=== PATIENT | male | born 1940 | race Caucasian/White ===

== ENCOUNTER 2017-07-20 16:43 | Inpatient (IN) | payer OTHER ==
[~2017-07-20] VITALS: Ht 172.7 cm; Wt 79.2 kg
[~2017-07-20 16:43] MED LIST: ALDACTONE25 MG PO; AMLODIPINE BESY10 M1 PO; AMLODIPINE10 MG PO; ANTIVERT 25MG #1 PAC PO; ASPIR 8181 MG PO; ATENOLOL50 MG PO; BENICAR HCT 251 TAB PO; BENICAR40 MG PO; CRESTOR 5MG5 MG PO; CYANOCOBAL1000 MCG/2 IM; DILTIAZEM ER180 M1 PO; DIOVAN320 M1 PO; ELIQUIS5 M1 PO; FUROSEMIDE40 MG PO; HYDREA500 M1 PO; LOVAZA1 G1 PO; METOPROLOL SUC100 M2 PO; METOPROLOL SUCC50 M1 PO; NORMAL SALINE1000 ML IV; PRADAXA150 MG PO; ROBITUSSIN W/CO10 ML PO; SENNA CON/DOCUS1 TAB PO; SYNTHROID175 MCG PO; VITAMIN D31000 IU PO
--- NOTE | 2017-07-20 17:23 | ED GENERAL ADULT ---
History of Present Illness General Chief Complaint: General Adult Stated Complaint: "INSIDE I HAVE ALL THIS PAIN, AND IM WEAK" Source: patient, family, old records Exam Limitations: no limitations Vital Signs & Intake/Output Vital Signs & Intake/Output Vital Signs Date Time Temp Pulse Resp B/P B/P Pulse O2 O2 Flow FiO2 Mean Ox Delivery Rate 07/20 2224 98.4 75 18 124/77 94 Nasal 3.0L Cannula 07/20 1914 152/98 07/20 1910 98.1 67 20 149/106 92 Nasal 3.0L Cannula 07/20 1752 90 Nasal 3.0L Cannula 07/20 1737 94 Nasal 2.0L Cannula 07/20 1647 96.6 96 15 176/116 88 Room Air Room Air ED Intake and Output 07/21 0000 07/20 1200 Intake Total 0 Output Total 635 Balance -635 Intake, Oral 0 Output, Urine 635 Patient 200 lb Weight Weight Reported by Patient Measurement Method Allergies Coded Allergies: No Known Allergies (07/20/17) Reconcile Medications Apixaban (Eliquis) 5 MG TABLET 1 TAB PO BID BLOOD THINNER (Reported) Diltiazem HCl (Diltiazem ER) 180 MG CAPSULE.ER 1 CAP PO DAILY HEART (Reported ) Levothyroxine Sodium (Synthroid) 175 MCG TABLET 1 TAB PO DAILY AC THYROID ( Reported) Metoprolol Succinate 100 MG TAB.ER.24H 1 TAB PO DAILY HEART (Reported) [place]-3 Acid Ethyl Esters (Lovaza) 1 GRAM CAPSULE 2 CAP PO BID CHOLESTEROL ( Reported) Valsartan (Diovan) 320 MG TABLET 1 TAB PO DAILY BP (Reported) Triage Note: PT TO ED FOR C/C OF FULL BODY ACHES AND CHILLS, COUGHING, SNEEZING, -N/V/+DIARRHEA AND ALSO CONSTIPATION. O2 SAT 89% ON RA. PLACED ON 2L NC OXYGEN IN TRIAGE. +SOB, WORSE WHEN LAYING DOWN. Triage Nurses Notes Reviewed? yes Onset: Gradual Duration: week(s):, constant, getting worse Timing: recent history Injury Environment: home Severity: moderate Severity Numbers: 7 No Modifying Factors: none Associated Symptoms: SOB HPI: 76 Year old male with history A. fib on elliquis, hypertension, AICD placed in 2014, thyroid and parathyroid malignancy status post thyroidectomy and parathyroidectomy, polycythemia vera emergency room for evaluation complaining of generalizedbodyaches over his entire body since phil of 2017 a/w generalized malaise and shortenss of breath. he denies chest pain, palpitations, abdominal pain. pt reports he was oonstipated earlier this week for which he used a stool softener and had a normal bm yesterday. no diarrhea contrary to triage note. no leg swelling, rashes to his skin, fever, chills, cough. he has never smoked. he has been compliant with taking his elliquis (Ludin Villasenor) Past History Travel History Traveled to [place] past 21 day No Medical History Any Pertinent Medical History? see below for history Neurological: NONE EENT: thyroid and parathyroid malignancy Cardiovascular: AFIB, hypertension, AICD Respiratory: NONE Gastrointestinal: NONE Hepatic: NONE Renal: NONE Musculoskeletal: NONE Psychiatric: NONE Endocrine: chronic hypercalcemia Blood Disorders: pv Cancer(s): thyroid CANCER SPRAY APPLICATOR/Reproductive: NONE History of MRSA: No History of VRE: No History of CDIFF: No Surgical History Surgical History: thyroidectomy Psychosocial History Who do you live with Patient/Self Services at Home None What is your primary language Irish Tobacco Use: Never used ETOH Use: denies use Illicit Drug Use: denies illicit drug use Family History Family History, If Any: MOTHER FH: HTN (hypertension) SISTER FH: HTN (hypertension) SISTER FH: diabetes mellitus BROTHER FH: diabetes mellitus Relation not specified for: FH: heart disease Hx Contributory? No (Ludin Villasenor) Review of Systems Review of Systems Constitutional: Reports: see HPI. Comments Review of systems: See HPI, All other systems negative. Constitutional, chills no fever, malaise HEENT: no sore throat no congestion, no ear pain Cardiovascular: No chest pain , no palpitation Skin: no rashes, no change in skin Respiratory: dyspnea no cough no sputum no hemoptysis GI: No nausea no vomiting, no diarrhea, no bloating/constipation : No dysuria Muscle skeletal: No joint pain, no back pain, no neck pain, Neurologic: , no headache Psych: No stress Heme/endocrine: No bruising Immunology: No lymphadenopathy (Ludin Villasenor) Physical Exam Physical Exam General Appearance: well developed/nourished, alert, awake Comments: Well-developed well-nourished person in no acute distress HEENT: Normal EENT exam; PERRL, EOMI, HEAD is atraumatic. moist mucous membranes. Neck: Supple, normal range of motion without pain or tenderness Back:Full range of motion Cardiovascular: Irregular rate and rhythm no murmurs, normal JVP Respiratory: Chest nontender.There were no bony deformities, no asymmetry. No respiratory distress. Patient speaking in full complete sentences. Breath sounds clear to auscultation bilaterally: NO W/R/R Abdomen: Soft, nontender nondistended, no appreciable organomegaly. Normal bowel sounds. No rebound/guarding, No appreciable enlargement of the abdominal aorta, No ascites. Extremity: No edema, full range of motion of extremities, normal and equal pulses bilaterally, 5 out of 5 strength noted to bilateral upper and lower extremities Neuro: Alert oriented x3, motor sensory normal. There were no obvious focal neurologic abnormalities. Skin: No appreciable rash on exposed skin, skin is warm and dry. Psych: Mood and affect is normal, memory and judgment is normal. Core Measures ACS in differential dx? Yes CVA/TIA Diagnosis: No Sepsis Present: No Sepsis Focused Exam Completed? No (Estevan SEGOVIA,Ludin) Progress Differential Diagnoses I considered the following diagnoses in my evaluation of the patient: [pe, pna, cleve, anemia, ami, sepsis, pleural effusion, malignancy, influenza Plan of Care: Orders Procedure Date/time Status Heart Healthy Diet 07/21 B Active TROPONIN LEVEL 07/21 0600 Active CBC WITHOUT DIFFERENTIAL 07/21 06 Active BASIC ELECTROLYTES PLUS BUN&CR 07/21 0600 Active EKG 07/21 0600 Active TROPONIN LEVEL 07/21 0005 Complete SODIUM 07/21 0005 Complete EKG 07/21 0005 Active Weight 07/21 UNK Active Intake & Output 07/21 UNK Active ECHOCARDIOGRAM 07/21 UNK Active Teach/Educate 07/20 2351 Active Pain Treatment and Response 07/20 2351 Active Nutritional Intake, Monitor 07/20 2351 Active Isolation 07/20 2351 Active Patient Care Conference 07/20 2351 Active Pathway - chart 07/20 2231 Active House Staff 07/20 2231 Active Patient Data 07/20 223 Active Patient Data 07/20 2206 Active OXYGEN SETUP (GEN) 07/20 2003 Active Saline Lock 07/20 2003 Active Admit to inpatient 07/20 2003 Active Vital Signs 07/20 2003 Active Activity/Ambulation 07/20 2003 Active Code Status 07/20 2003 Active BLOOD CULTURE 07/20 1910 Active Add-on Test (ER Only) 07/20 1844 Active Add-on Test (ER Only) 07/20 1736 Active Add-on Test (ER Only) 07/20 1735 Active Telemetry/Saute Chef 07/20 1735 Active Intake & Output 07/20 1734 Active PARTIAL THROMBOPLASTIN TIME 07/20 173 Complete PROTHROMBIN TIME 07/20 1730 Complete LACTIC ACID 07/20 1730 Complete CREATINE PHOSPHOKINASE 07/20 1730 Complete B-TYPE NATRIURETIC PEP (BNP) 07/20 1730 Complete RAPID VIRAL INFLUENZA A 07/20 1656 Complete TROPONIN LEVEL 07/20 165 Complete COMPREHENSIVE METABOLIC PANEL 07/20 165 Complete CBC WITHOUT DIFFERENTIAL 07/20 165 Complete EKG 07/20 165 Active TRC EVALUATION (GEN) 07/20 UNK Active VTE Mechanical Prophylaxis 07/20 UNK Active Current Medications Sig/Janes Start time Last Medication Dose Stop Time Status Admin Metoprolol Succinate 100 MG DAILY 07/21 1000 AC (Toprol Xl) Furosemide 20 MG 7:30 AM, & 4:30 PM 07/21 0730 AC (Lasix) Levothyroxine Sodium 0.175 MG DAILY AC 07/21 0700 AC (Synthroid) Polyethylene Glycol 17 GM DAILY PRN 07/21 0115 AC (Miralax) Senna 187 MG AT BEDTIME PRN 07/21 0115 AC (Senokot) Apixaban 5 MG BID 07/21 0100 AC 07/21 (Eliquis) 0216 Laboratory Tests 07/21/17 0030: Troponin I 0.02 07/20/17 1730: Anion Gap 18 H, Estimated GFR > 60, BUN/Creatinine Ratio 22.7, Glucose 113 H, Lactic Acid 1.8, Calcium 11.0 H, Total Bilirubin 1.0, AST 19, ALT 25, Alkaline Phosphatase 76, Creatine Kinase 46 L, Troponin I 0.03, Xra-N-Tbwadmyaxzt Pept 45085 H, Total Protein 7.4, Albumin 4.5, Globulin 2.9, Albumin/Globulin Ratio 1.6, PT 29.8 H, INR 2.87 H, APTT 41 H, CBC w Diff NO MAN DIFF REQ, RBC 4.77, MCV 101.7 H, MCH 33.5 H, MCHC 32.9 L, RDW 16.2 H, MPV 8.3, Gran % 78.8 H, Lymphocytes % 13.0 L, Monocytes % 6.8, Eosinophils % 1.1, Basophils % 0.3, Absolute Granulocytes 6.3, Absolute Lymphocytes 1.0 L, Absolute Monocytes 0.5, Absolute Eosinophils 0.1, Absolute Basophils 0 Microbiology 07/20 1909 BLOOD: Blood Culture - RECD 07/20 1657 NASOPHARYN: Influenza Virus A & B Rapid Smear - COMP duoneb, solumedrol 125mg iv ordered. pt resting in nad case d/w dr leal agrees with plan 1844- pt 92% on 3l, reports improvement in sx with duoneb, i d/w the pt and his family all his labs and xray findings. pending ct. pts ca is baseline CASE D/W DR ESTRADA WILL CONSULT, AGREES WITH PLAN Diagnostic Imaging: Viewed by Me: Radiology Read, CT Scan. Discussed w/RAD: Radiology Read, CT Scan. Radiology Impression: PATIENT: MARLYS ROWE PRESENT AGE: 76 PATIENT ACCOUNT NO: [id number] : 39 LOCATION: [facility] ORDERING PHYSICIAN: Ludin SEGOVIA SERVICE DATE: 07/20/17 EXAM TYPE: RAD - XRY- PORTABLE CHEST XRAY EXAMINATION: XR PORTABLE CHEST CLINICAL INFORMATION: Shortness of breath. Hypoxia. COMPARISON: Chest x-ray 01/21/2017 TECHNIQUE: Portable frontal view of the chest was obtained. 5:53 PM FINDINGS: Heart size is enlarged. There is a single lead pacemaker in the right ventricle. No acute change of the vascularity. The central hilar vessels are slightly prominent but this is stable since exam of 01/21/2017. No interstitial edema. No large pleural effusion. No dense consolidation. IMPRESSION: Cardiomegaly. Pacemaker lead in right ventricle. No acute pulmonary vascular congestion. DICTATED BY: Uziel Melvin MD DATE/TIME DICTATED:07/20/171822 BROKE BEATER OPERATOR:RICHARD DATE/TIME TRANSCRIBED:07/20/171822 CONFIDENTIAL, DO NOT COPY WITHOUT APPROPRIATE AUTHORIZATION. <Electronically signed in Other Vendor System> SIGNED BY: Uziel Melvin MD 07/20/171828, PATIENT: MARYLS ROWE PRESENT AGE: 76 PATIENT ACCOUNT NO: [id number] : 39 LOCATION: ER ORDERING PHYSICIAN: Ludin SEGOVIA SERVICE DATE: 07/20/174344 EXAM TYPE: CAT - CTA CHEST-PULMONARY EMBOLISM EXAMINATION: CT ANGIOGRAM OF THE CHEST WITH AND WITHOUT CONTRAST (CT PULMONARY ANGIOGRAM FOR PE) CLINICAL INFORMATION: Hypoxia and shortness of breath. COMPARISON: CTA chest 01/21/2017. Chest x-ray performed the same day. TECHNIQUE: Prior to contrast administration, noncontrast localization images were obtained. Subsequently, multidetector volumetric imaging was performed from the thoracic inlet to below the diaphragms following the administration of 95 mL Optiray 320 intravenous contrast. No contrast reaction reported. Sagittal, coronal, and MIP oblique sagittal reformatted images were obtained on the CT workstation, uploaded to PACS, and reviewed. FINDINGS: No filling defects within the central, lobar, or segmental pulmonary arteries to suggest underlying pulmonary embolism. There is interlobular septal thickening and patchy groundglass opacities suggesting interstitial/alveolar pulmonary edema. There is a small right pleural effusion. There is no pneumothorax. 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 Stable cardiomegaly. Stable appearing nonspecific enlarged mediastinal and bilateral hilar lymph nodes. Duodenal periampullary diverticulum. No acute osseous abnormalities. Thoracic spondylosis. Left pectoral pacemaker in place. IMPRESSION: - No central pulmonary embolism. - Imaging findings suggest mild to moderate interstitial/ alveolar pulmonary edema. There is a small right pleural effusion. - Stable appearing nonspecific enlarged mediastinal and bilateral hilar lymph nodes. 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 - Stable cardiomegaly. DICTATED BY : Franko Medrano MD DATE/TIME DICTATED:07/20/171849 BROKE BEATER OPERATOR: RICHARD DATE/TIME TRANSCRIBED:07/20/171849 CONFIDENTIAL, DO NOT COPY WITHOUT APPROPRIATE AUTHORIZATION. <Electronically signed in Other Vendor System> SIGNED BY: Franko Medrano MD 07/20/171921 Initial ED EKG: AFIB AT 70, PVC, NO ACUTE ST SEG CHANGES, NORMAL AXIS Prior EKG: unchanged Rhythm Strip: atrial fibrillation (Estevan SEGOVIA,Ludin) Departure Departure Time of Disposition: 2010 Disposition: STILL A PATIENT Condition: Stable Clinical Impression Primary Impression: CHF exacerbation Qualifiers: Congestive heart failure type: unspecified congestive heart failure type Qualified Code: I50.9 - Heart failure, unspecified Secondary Impressions: Hilar lymphadenopathy, Hypoxia, Mediastinal lymphadenopathy, Pseudoaneurysm Referrals: Alex Self MD (PCP/Family) Departure Forms: Customer Survey General Discharge Information Admission Note Spoke With: Andie Gibbons MD Documentation of Exam: Documentation of any treatments & extenuating circumstances including Concerns Regarding Discharge (functional status, medication knowledge or non-compliance, living conditions, etc.) that warrant an admission rather than observation: CARDIOLOGY CONSULT, IV DIURESIS, RESP TX PRN, PREMATURE DISCHARGE WOULD BE MEDICALLY HARMFUL PT IS HYPOXIC ON ROOM AIR, NORMALLY NOT O2 DEPENDANT, MAY REQUIRE ECHO, (Ludin Villasenor) PA/PLANT PATHOLOGY TEACHER Co-Sign Statement Statement: ED Attending supervision documentation- x I saw and evaluated the patient. I have also reviewed all the pertinent lab results and diagnostic results. I agree with the findings and the plan of care as documented in the PA's/PLANT PATHOLOGY TEACHER's documentation. Afib on eliquis with sob, keller. Pulmonary edema on CTA with elevated BNP [] I have reviewed the ED Record and agree with the PA's/PLANT PATHOLOGY TEACHER's documentation. [] Additions or exceptions (if any) to the PAs/PLANT PATHOLOGY TEACHER's note and plan are summarized below: [] (Rashida WRIGHT,Darian) Critical Care Note Critical Care Note Critical Care Time: 30-74 min (Ludin Villasenor)
[2017-07-20 17:48] LABS: ABSOLUTE BASOPHIL COUNT 0 /CUMM (0.0-0.2); ABSOLUTE EOSINOPHIL COUNT 0.1 /CUMM (0.0-0.7); ABSOLUTE GRANULOCYTE CT 6.3 /CUMM (1.4-6.5); ABSOLUTE MONOCYTE COUNT 0.5 /CUMM (0.10-0.60); BASOPHIL % 0.3 % (0.0-2.0); EOSINOPHIL % 1.1 % (0-5); GRANULOCYTE % 78.8 % (42.2-75.2); HEMATOCRIT 48.6 % (42-52); MEAN CORPUSCULAR HGB 33.5 PG (27.0-31.0); MEAN CORPUSCULAR HGB CONC 32.9 G/DL (33.0-37.0); MEAN CORPUSCULAR VOLUME 101.7 FL (80.0-94.0); MEAN PLATELET VOLUME 8.3 FL (7.4-10.4); PLATELET COUNT 229 /CUMM (130-400); RBC DISTRIBUTION WIDTH 16.2 % (11.5-14.5); RED BLOOD CELL CT 4.77 /CUMM (4.70-6.10)
[2017-07-20 17:55] LABS: PT 29.8 SEC (9.4-12.5); PTT 41 SEC (25-37)
--- NOTE | 2017-07-20 18:29 | RADIOLOGY REPORT ---
EXAMINATION: XR PORTABLE CHEST CLINICAL INFORMATION: Shortness of breath. Hypoxia. COMPARISON: Chest x-ray 01/21/2017 TECHNIQUE: Portable frontal view of the chest was obtained. 5:53 PM FINDINGS: Heart size is enlarged. There is a single lead pacemaker in the right ventricle. No acute change of the vascularity. The central hilar vessels are slightly prominent but this is stable since exam of 01/21/2017. No interstitial edema. No large pleural effusion. No dense consolidation. IMPRESSION: Cardiomegaly. Pacemaker lead in right ventricle. No acute pulmonary vascular congestion.
--- NOTE | 2017-07-20 19:22 | CT SCAN REPORT ---
EXAMINATION: CT ANGIOGRAM OF THE CHEST WITH AND WITHOUT CONTRAST (CT PULMONARY ANGIOGRAM FOR PE) CLINICAL INFORMATION: Hypoxia and shortness of breath. COMPARISON: CTA chest 01/21/2017. Chest x-ray performed the same day. TECHNIQUE: Prior to contrast administration, noncontrast localization images were obtained. Subsequently, multidetector volumetric imaging was performed from the thoracic inlet to below the diaphragms following the administration of 95 mL Optiray 320 intravenous contrast. No contrast reaction reported. Sagittal, coronal, and MIP oblique sagittal reformatted images were obtained on the CT workstation, uploaded to PACS, and reviewed. FINDINGS: No filling defects within the central, lobar, or segmental pulmonary arteries to suggest underlying pulmonary embolism. There is interlobular septal thickening and patchy groundglass opacities suggesting interstitial/alveolar pulmonary edema. There is a small right pleural effusion. There is no pneumothorax. 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 Stable cardiomegaly. Stable appearing nonspecific enlarged mediastinal and bilateral hilar lymph nodes. Duodenal periampullary diverticulum. No acute osseous abnormalities. Thoracic spondylosis. Left pectoral pacemaker in place. IMPRESSION: - No central pulmonary embolism. - Imaging findings suggest mild to moderate interstitial/alveolar pulmonary edema. There is a small right pleural effusion. - Stable appearing nonspecific enlarged mediastinal and bilateral hilar lymph nodes. 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 - Stable cardiomegaly.
--- NOTE | 2017-07-20 22:08 | History & Physical ---
Adriano Pederson MD 07/20/17 7933: General Information and HPI MD Statement: I have seen and personally examined MARLYS NAZARIO and documented this H&P. The patient is a 76 year old M who presented with a patient stated chief complaint of [worsening dyspnea]. Source of Information: patient, old records Exam Limitations: no limitations History of Present Illness: Patient is a 76-year-old male with a past medical history significant for A. fib on Eliquis, AICD placed in 2015, HTN, pulmonary htn, thyroid and parathyroid cancer status post thyroid and parathyroidectomy, PCV presents complaining of worsening dyspnea on exertion. Patient states that for the past 2 months he has been experiencing progressive dyspnea on exertion, but states he intermittently has "good days" where he does not experience dyspnea. Patient states that recently shortness of breath has gotten worse to the point that he even get short of breath with tasks such as writing. Patient also complains of orthopnea states that he gets very short of breath when lying down flat and must turn on his sides. During this time he also reports a mostly dry cough with occasional greenish sputum production. He reports mild chest pain associated with his cough. He endorses PND and poor PO intake. He also endorses intermittent palpitations during this period of time which he describes as a sensation of his heart racing and lasts for roughly 1 minute, he states that these occur approximately weekly. He denies any leg swelling, general chest discomfort, fever, chills, nausea, vomiting, sick contacts. Allergies/Medications Allergies: Coded Allergies: No Known Allergies (07/20/17) Home Med list Apixaban (Eliquis) 5 MG TABLET 1 TAB PO BID BLOOD THINNER (Reported) Diltiazem HCl (Diltiazem ER) 180 MG CAPSULE.ER 1 CAP PO DAILY HEART (Reported ) Levothyroxine Sodium (Synthroid) 175 MCG TABLET 1 TAB PO DAILY AC THYROID ( Reported) Metoprolol Succinate 100 MG TAB.ER.24H 1 TAB PO DAILY HEART (Reported) [place]-3 Acid Ethyl Esters (Lovaza) 1 GRAM CAPSULE 2 CAP PO BID CHOLESTEROL ( Reported) Valsartan (Diovan) 320 MG TABLET 1 TAB PO DAILY BP (Reported) Past History Travel History Traveled to [place] past 21 day No Medical History Neurological: NONE EENT: thyroid and parathyroid malignancy Cardiovascular: AFIB, hypertension, AICD Respiratory: NONE Gastrointestinal: NONE Hepatic: NONE Renal: NONE Musculoskeletal: NONE Psychiatric: NONE Endocrine: chronic hypercalcemia Blood Disorders: pv Cancer(s): thyroid CANCER KNOT BORER/Reproductive: NONE History of MRSA: No History of VRE: No History of CDIFF: No Surgical History Surgical History: thyroidectomy Past Family/Social History Family History Relations & Conditions if any MOTHER FH: HTN (hypertension) SISTER FH: HTN (hypertension) SISTER FH: diabetes mellitus BROTHER FH: diabetes mellitus Relation not specified for: FH: heart disease Psychosocial History Where do you live? Home Who Do You Live With? self Services at Home: None Primary Language: Romansh Smoking Status: Never Smoked ETOH Use: denies use Illicit Drug Use: denies illicit drug use Living Will? no Review of Systems Review of Systems Constitutional: Denies: chills, fever. EENTM: Reports: blurred vision. Denies: double vision, eye pain. Cardiovascular: Reports: orthopena, palpitations. Denies: chest pain, edema, syncope. Respiratory: Reports: cough, orthopnea, short of breath, sputum production. Denies: hemoptysis, wheezing. GI: Reports: constipation. Denies: abdominal pain, melena, nausea, bloody stool, vomiting. Genitourinary: Reports: frequency. Denies: dysuria, hematuria. Musculoskeletal: Reports: no symptoms. Skin: Reports: no symptoms. Exam & Diagnostic Data Last 24 Hrs of Vital Signs/I&O Vital Signs Date Time Temp Pulse Resp B/P B/P Pulse O2 O2 Flow FiO2 Mean Ox Delivery Rate 07/20 2224 98.4 75 18 124/77 94 Nasal 3.0L Cannula 07/20 191 152/98 07/20 1910 98.1 67 20 149/106 92 Nasal 3.0L Cannula 07/20 1752 90 Nasal 3.0L Cannula 07/20 1737 94 Nasal 2.0L Cannula 07/20 1647 96.6 96 15 176/116 88 Room Air Room Air Intake & Output 07/21 0800 07/21 0000 07/20 1600 Intake Total 0 Output Total 635 Balance -635 Intake, Oral 0 Output, Urine 635 Patient 200 lb Weight Weight Reported by Patient Measurement Method Physical Exam General Appearance Alert, Oriented X3, Cooperative, No Acute Distress Skin Temp/Moisture Exam: Warm/Dry Sepsis Skin Exam (color): Normal for Ethnicity HEENT Atraumatic, PERRLA, EOMI, Mucous Membr. moist/pink Neck Supple, JVD+ Cardiovascular Regular Rate, Normal S1, Normal S2, irregularly irregular rhythm Lungs diminished breath sounds, bibasilar crackles Abdomen Normal Bowel Sounds, Soft, No Tenderness Neurological Normal Speech, Strength at 5/5 X4 Ext, Normal Tone, Sensation Intact, Cranial Nerves 3-12 NL Last 24 Hrs of Labs/Brent: Laboratory Tests 07/21/17 0030: Sodium Pending, Troponin I Pending 07/20/17 1730: Anion Gap 18 H, Estimated GFR > 60, BUN/Creatinine Ratio 22.7, Glucose 113 H, Lactic Acid 1.8, Calcium 11.0 H, Total Bilirubin 1.0, AST 19, ALT 25, Alkaline Phosphatase 76, Creatine Kinase 46 L, Troponin I 0.03, [id number] Pept 42679 H, Total Protein 7.4, Albumin 4.5, Globulin 2.9, Albumin/Globulin Ratio 1.6, PT 29.8 H, INR 2.87 H, APTT 41 H, CBC w Diff NO MAN DIFF REQ, RBC 4.77, MCV 101.7 H, MCH 33.5 H, MCHC 32.9 L, RDW 16.2 H, MPV 8.3, Gran % 78.8 H, Lymphocytes % 13.0 L, Monocytes % 6.8, Eosinophils % 1.1, Basophils % 0.3, Absolute Granulocytes 6.3, Absolute Lymphocytes 1.0 L, Absolute Monocytes 0.5, Absolute Eosinophils 0.1, Absolute Basophils 0 Microbiology 07/20 1910 BLOOD: Blood Culture - RECD 07/20 1658 NASOPHARYN: Influenza Virus A & B Rapid Smear - COMP Diagnostic Data EKG Results A fib with PVCs CXR Results Cardiomegaly. Pacemaker lead in right ventricle. No acute pulmonary vascular congestion. Other Results CTA chest - No central pulmonary embolism. - Imaging findings suggest mild to moderate interstitial/alveolar pulmonary edema. There is a small right pleural effusion. - Stable appearing nonspecific enlarged mediastinal and bilateral hilar lymph nodes. 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 - Stable cardiomegaly. Assessment/Plan Assessment: Patient is a 76-year-old male with a past medical history significant for A. fib on Eliquis, AICD placed in 2014, HTN, thyroid and parathyroid cancer status post thyroid and parathyroidectomy, PCV presents complaining of worsening dyspnea on exertion. VS on admission: T 96.6, P 96, RR 15, BP 176/116, O2 sat 88% on room air increased to 94% on 3 L O2 NC. Pertinent Labs on admission: Sodium 149, BUN 25, Cr 1.1, ProBNP 10,700, On the ED patient received IV Lasix and a breathing treatment which she states his breathing. Patient's O2 saturation dropped to 80% on room air while transitioning from sitting to standing. Problem list #Acute hypoxic respiratory failure likely secondary to CHF #Hypernatremia likely due to dehydration #Chronic medical problems including PCV, HTN, A. fib, pulmonary htn Plan -Admit to telemetry -Continuous telemetry monitoring - Rule out ACS with serial troponin and EKG - echocardiogram -PE ruled out with CTA -IV Lasix 20 mg twice a day -Taper O2 as tolerated -BEP every 6 hours to monitor sodium - Strict Is and Os and daily weights - Continue home medications including Eliquis, diltiazem, metoprolol, valsartan , Synthroid - cardiology consult #Diet heart healthy #DVT prophylaxis: Eliquis #CODE STATUS: Full code As Ranked By This Provider Problem List: 1. CHF exacerbation Qualifiers Congestive heart failure type: unspecified congestive heart failure type Qualified Code: I50.9 - Heart failure, unspecified 2. Acute and chronic respiratory failure with hypoxia Core Measures/Misc (03/05) Acute Coronary Syndrome ACS Diagnosis: No Congestive Heart Failure Congestive Heart Failure Diagnosis Yes Last Known EF % 55 Cerebrovascular Accident CVA/TIA Diagnosis: No VTE (View Protocol) VTE Risk Factors Cancer/chemo/othr therapy No Mechanical VTE Prophylaxis d/t N/A MechProphylax Ordered No VTE Pharm Prophylaxis d/t NA PharmProphylax ordered Sepsis (View protocol) Sepsis Present: No Grady Argueta MD 07/20/172231: Resident Review Statement Resident Statement: examined this patient, discussed with tech intern Other Findings: H: Mr Nazario is a pleasant 76-year-old male with a past medical history significant for A. fib on Eliquis, AICD (placed in 2014), HTN, pulmonary hypertension, thyroid and parathyroid cancer status post thyroid and parathyroidectomy, PCV who was brought into the emergency department complaining of weakness, a productive cough and dyspnea on exertion. Patient states that his symptoms have been occurring for the last few months. He states that this has affected his activities of daily living and is unable to be active in tasks such as writing. He also reports significant orthopnea. Coupled with the above, the patient also endorses a mild cough, productive of green sputum. He states that accociated with this cough is a significant amount of chest pain which radiates acorss the entire chest wall. He also endorses occational heart palpitations. Patient follows up with ragman Dr. Jackson. Patient follows up with specimen transporter Dr. La. R On Review of systems, the patient denies any fever, chills, nausea, vomiting. He does state that he has been constipated and previously attempted relief by using a stool softener. T 96.6. Pulse 96. Respirations 15. Blood pressure 176/116. Percent saturation 88% on room air. General Appearance: well developed/nourished, no apparent distress, alert and oriented. Head: atraumatic, normal appearance Eyes: PERRLA Ears, Nose, Throat: hearing grossly normal Neck:Supple, full range of motion Respiratory: Mild bibassilar Crackles Noted. Diminished Breath Sounds. Cardiovascular:Irregular Rate/Rhythm., No murmurs gallops or rubs. Gastrointestinal: normal bowel sounds, soft, non-tender. Back: normal inspection, normal range of motion Extremities: normal inspection, normal range of motion. No Edema Neurologic/Psych: no motor/sensory deficits, awake, alert, oriented x 3 Skin: warm/dry L: WBC: 8.0. H&H 16.0 48.6. Platelets 229. Sodium 149. Potassium 3.6. BUN 25. Creatinine 1.1.HCO3 24. Cl 107 I: EXAMINATION: CT ANGIOGRAM OF THE CHEST WITH AND WITHOUT CONTRAST (CT PULMONARY ANGIOGRAM FOR PE) IMPRESSION: - No central pulmonary embolism. - Imaging findings suggest mild to moderate interstitial/alveolar pulmonary edema. There is a small right pleural effusion. - Stable appearing nonspecific enlarged mediastinal and bilateral hilar lymph nodes. 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 - Stable cardiomegaly. SERVICE DATE: 07/20/179849 EXAM TYPE: RAD - XRY-PORTABLE CHEST XRAY IMPRESSION: Cardiomegaly. Pacemaker lead in right ventricle. No acute pulmonary vascular congestion. A/P Mr Nazario is a pleasant 76-year-old male with a past medical history significant for A. fib on Eliquis, AICD (placed in 2014), HTN, pulmonary hypertension, thyroid and parathyroid cancer status post thyroid and parathyroidectomy, PCV who was brought into the emergency department complaining of weakness, a productive cough and dyspnea on exertion. Acute hypoxic respiratory failure secondary due to decompensated CHF Hypernatremia Rule out ACS History of atrial fibrillation History of hypertension History of thyroid and parathyroid malignancy status post resection History of polycythemia vera Constipation. Admit Patient to Telemetry Will trend troponins to peak. Monitor Na Q 4-6 hours. Ensure not to correct more than 8 hours in a 24-hour period. His hypernatremia shows that he has a 3.5 L of water deficit. Lasix administration will help and bring down the sodium. Repeat Echocardiogram, assess for worsening pulmonary HTN. Cardiology Consultation in AM Strict I's and O's Continue Lasix 20 mg IV every twice a day, may consider Lasix PO on a daily basis at the time of discharge. Miralax and Senokot PRN PT/ OT Consult in Am Diet: Heart healthy. DVT prophylaxis Eliquis. Patient is a Full Code Andie Gibbons 07/21/17 0545: Attending MD Review Statement Attending Statement Attending MD Statement: examined this patient, discuss w/resident/PA/VISUAL EDUCATOR, agreed w/resident/PA/VISUAL EDUCATOR, reviewed EMR data (avail), reviewed images, amended to note Attending Assessment/Plan: Cc: Shortness of breath PMH: A. fib, bradycardia S/P AICD, thyroid cancer, parathyroid cancer S/P 3 surgeries, no radiation or chemotherapy, polycythemia, HTN , TIA Patient came to ER for progressive worsening of shortness of breath since last 1 month. Patient gets shortness of breath more on exertion, these days even with minimal activity, relieved at rest, worse with lying down position associated with mild productive cough. He has some chest soreness because of cough but denies any pain, he has occasional palpitations. He denies any fever, chills, flulike symptoms, worsening of leg swelling. No change in medication. Patient was refusing pamidronate infusion outpatient which was stopped. His hydroxyurea was stopped as well. There is a concern of recurrence for thyroid cancer, patient has been procrastinating the surgery since last many months. Patient does not carry a diagnosis of congestive heart failure. Vitals: Afebrile, pulse 96, RR 15, blood pressure 176/111 on arrival improved to 149/106, saturating 88% on room air improved to 93% on 2 L. On exam: A O 3, cooperative, no acute distress, neck supple, JVD elevated, no lymphadenopathy, mucosa moist, no focal neurological deficit, no dependent edema , no obvious skin rashes or inflammation CVS: S1-S2, irregular. RS: Dependent crackles. Abdomen: Soft, NT, ND, bowel sounds present. Labs: CBC unremarkable except MCV 101.7, sodium 149, potassium 3.6, chloride 107 , bicarbonate 24, BUN 25, creatinine 1.1, anion gap 18, glucose 113, calcium 11.0, LFT unremarkable, troponin 0.03, proBNP 10,700, INR 2.87 CXR:Cardiomegaly. Pacemaker lead in right ventricle. No acute pulmonary vascular congestion. CTA chest: - No central pulmonary embolism. - Imaging findings suggest mild to moderate interstitial/alveolar pulmonary edema. There is a small right pleural effusion. - Stable appearing nonspecific enlarged mediastinal and bilateral hilar lymph nodes. 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 - Stable cardiomegaly. Assessment and plan 76-year-old male with past medical history significant for A. fib, HTN, S/P AICD , history of thyroid and parathyroid cancer with multiple surgeries but no chemotherapy or radiation, polycythemia vara presented in ER for progressive shortness of breath over one month duration more so with exertion, endorses orthopnea, no leg swelling but on examination he is found to have elevated JVD and dependent crackles, chest x-ray does not show any evidence of pulmonary edema but CTA was obtained which ruled out pulmonary embolism instead shows mild to moderate interstitial/alveolar edema. Patient's blood pressure was significantly elevated at arrival which may have precipitated pulmonary edema with likely diastolic failure. His recent echocardiogram done on January 2017 reviewed which showed normal systolic function. Given his worsening of symptoms he would benefit from repeating 2-D echocardiogram, ruling out ischemia. + Suspected new onset heart failure with preserved ejection fraction + Accelerated blood pressure + Hypercalcemia: Chronic secondary to recurrence of thyroid/parathyroid cancer + Hypernatremia + History of A. fib, bradycardia S/P AICD, thyroid cancer, parathyroid cancer S/ P 3 surgeries, no radiation or chemotherapy, polycythemia, HTN , TIA - Admit to telemetry - Continuous telemetry monitoring - Try to wean off oxygen - IV Lasix 20 mg mg twice a day - Strict I's and O's - Daily weights - Serial troponin and EKGs - 2-D echo in a.m. - Cardiology consult in a.m. - Repeat sodium in 4 hours and then in a.m. - DVT prophylaxis
[2017-07-20 23:55] VITALS: BP 148/101
--- NOTE | 2017-07-21 05:47 | Admission Certification ---
Admission Certification Certification Statement - As attending physician, I certify that at the time of - admission, based on clinical presentation, severity of - symptoms, need for further diagnostic testing and - therapeutic interventions, and risk of adverse outcomes - without in-hospital treatment, in my clinical assessment, - this patient requires an acute hospital stay for a minimum - of two nights or longer. I have also considered psychsocial - factors such as support system, advanced age, financial - issues, cognitive issues, and failed out-patient treatments, - past re-admission history, safety of patient, and lack of - compliance as applicable. Specific rationale supporting this admission is: Suspected new onset heart failure with possible preserved ejection fraction, accelerated blood pressure
[2017-07-21 06:54] VITALS: BP 130/62
[2017-07-21 07:37] LABS: ABSOLUTE BASOPHIL COUNT 0 /CUMM (0.0-0.2); ABSOLUTE EOSINOPHIL COUNT 0 /CUMM (0.0-0.7); ABSOLUTE GRANULOCYTE CT 6.7 /CUMM (1.4-6.5); ABSOLUTE LYMPH COUNT 0.5 /CUMM (1.2-3.4); ABSOLUTE MONOCYTE COUNT 0 /CUMM (0.10-0.60); BASOPHIL % 0 % (0.0-2.0); EOSINOPHIL % 0 % (0-5); GRANULOCYTE % 92.5 % (42.2-75.2); HEMATOCRIT 45.7 % (42-52); MEAN CORPUSCULAR HGB 33.7 PG (27.0-31.0); MEAN CORPUSCULAR HGB CONC 33.4 G/DL (33.0-37.0); MEAN PLATELET VOLUME 8.6 FL (7.4-10.4); PLATELET COUNT 217 /CUMM (130-400); RBC DISTRIBUTION WIDTH 15.8 % (11.5-14.5); RED BLOOD CELL CT 4.53 /CUMM (4.70-6.10); WHITE BLOOD CELL COUNT 7.2 /CUMM (4.8-10.8)
--- NOTE | 2017-07-21 07:52 | PN- Housestaff ---
Fabricio WRIGHT,Kathryn 07/21/17 0752: Subjective Follow-up For: New onset HF HTN Hypercalcemia Hypernatremia Tele-Events Since Last Visit: Andrew.fib 62-75, paced, PVCs Subjective: Patient was seen and examined today. Patient states that his shortness of breath has improved. Patient states that he continues to have trouble breathing when lying flat. Patient denies any chest pain, palpitations, lower extremity edema, fever, chills, nausea/vomiting, dysuria/hematuria constipation/diarrhea. Patient does state that he does not feel as if he is completely emptying his bladder. No acute events overnight. Review of Systems Constitutional: Reports: no symptoms. Cardiovascular: Reports: see HPI, orthopena. Denies: chest pain, peripheral edema, syncope. Respiratory: Reports: see HPI. Gastrointestinal: Reports: no symptoms. Genitourinary: Reports: see HPI. Musculoskeletal: Reports: no symptoms. Objective Last 24 Hrs of Vital Signs/I&O Vital Signs Date Time Temp Pulse Resp B/P B/P Pulse O2 O2 Flow FiO2 Mean Ox Delivery Rate 07/21 0906 80 132/80 07/21 0654 98.1 61 18 130/62 95 Nasal Cannula 07/20 2355 94.3 82 16 148/101 92 Nasal 3.0L Cannula 07/20 2255 92 Nasal 3.0L Cannula 07/20 2225 98.4 75 18 124/77 94 Nasal 3.0L Cannula 07/20 1915 152/98 07/20 1911 98.1 67 20 149/106 92 Nasal 3.0L Cannula 07/20 1752 90 Nasal 3.0L Cannula 07/20 1737 94 Nasal 2.0L Cannula 07/20 1647 96.6 96 15 176/116 88 Room Air Room Air Intake & Output 07/21 1600 07/21 0800 07/21 0000 Intake Total 100 0 Output Total 250 635 Balance -150 -635 Intake, Oral 100 0 Output, Urine 250 635 Patient 200 lb Weight Weight Reported by Patient Measurement Method Physical Exam General Appearance: Alert, Oriented X3, Cooperative, No Acute Distress Skin: No Rashes, No Breakdown, No Significant Lesion Skin Temp/Moisture Exam: Warm/Dry HEENT: Atraumatic, Mucous Membr. moist/pink Neck: Supple, +2 Carotid Pulse wo Bruit, +JVD Lymphatic: Cervical nl Cardiovascular: Normal S1, Normal S2, irregular Lungs: crackles heard at lower lung bases bilaterally, remainder of lung exam clear to auscultation Abdomen: Normal Bowel Sounds, Soft, No Tenderness Extremities: No Clubbing, No Cyanosis, No Edema, Normal Pulses, No Tenderness/ Swelling Vascular: Normal Pulses, Pulses Symmetrical Current Medications: Current Medications Sig/Janes Start time Last Medication Dose Route Stop Time Status Admin Albuterol Sulfate 3 ML ONCE ONE 07/20 174 DC 07/20 INH 07/20 174 1749 Apixaban 5 MG BID 07/21 0100 AC 07/21 PO 0906 Furosemide 20 MG 7:30 AM, & 4:30 PM 07/21 0730 AC 07/21 IV 0906 Furosemide 0 .STK-MED ONE 07/20 193 DC IV Furosemide 20 MG ONCE ONE 07/20 193 DC 07/20 IV 07/20 193 193 Ipratropium [place] 2.5 ML ONCE ONE 07/20 1745 DC 07/20 INH 07/20 174 1749 Levothyroxine Sodium 0.175 MG DAILY AC 07/21 0700 AC 07/21 PO 0611 Methylprednisolone 0 .STK-MED ONE 07/20 175 DC .ROUTE Methylprednisolone 125 MG ONCE ONE 07/20 174 DC 07/20 IV 07/20 174 174 Metoprolol Succinate 100 MG DAILY 07/21 1000 AC 07/21 PO 0906 Polyethylene Glycol 17 GM DAILY PRN 07/21 0115 AC PO Senna 187 MG AT BEDTIME PRN 07/21 0115 AC PO Last 24 Hrs of Lab/Brent Results Last 24 Hrs of Labs/Mics: Laboratory Tests 07/21/17 1000: Sodium Cancelled 07/21/17 0642: Anion Gap 14, Estimated GFR > 60, BUN/Creatinine Ratio 24.0, Troponin I 0.01, CBC w Diff NO MAN DIFF REQ, RBC 4.53 L, MCV 101.0 H, MCH 33.7 H, MCHC 33.4, RDW 15.8 H, MPV 8.6, Gran % 92.5 H, Lymphocytes % 7.0 L, Monocytes % 0.5 L, Eosinophils % 0, Basophils % 0, Absolute Granulocytes 6.7 H, Absolute Lymphocytes 0.5 L, Absolute Monocytes 0 L, Absolute Eosinophils 0, Absolute Basophils 0 07/21/17 0030: Troponin I 0.02 07/20/17 1730: Anion Gap 18 H, Estimated GFR > 60, BUN/Creatinine Ratio 22.7, Glucose 113 H, Lactic Acid 1.8, Calcium 11.0 H, Total Bilirubin 1.0, AST 19, ALT 25, Alkaline Phosphatase 76, Creatine Kinase 46 L, Troponin I 0.03, Ubc-L-Irpvrxbidfs Pept 21443 H, Total Protein 7.4, Albumin 4.5, Globulin 2.9, Albumin/Globulin Ratio 1.6, PT 29.8 H, INR 2.87 H, APTT 41 H, CBC w Diff NO MAN DIFF REQ, RBC 4.77, MCV 101.7 H, MCH 33.5 H, MCHC 32.9 L, RDW 16.2 H, MPV 8.3, Gran % 78.8 H, Lymphocytes % 13.0 L, Monocytes % 6.8, Eosinophils % 1.1, Basophils % 0.3, Absolute Granulocytes 6.3, Absolute Lymphocytes 1.0 L, Absolute Monocytes 0.5, Absolute Eosinophils 0.1, Absolute Basophils 0 Microbiology 07/20 1909 BLOOD: Blood Culture - RECD 07/20 1657 NASOPHARYN: Influenza Virus A & B Rapid Smear - COMP Orders ECHO Findings: Left ventricular cavity size normal. Left ventricular wall thickness at upper limits of normal. Moderately reduced global left ventricular systolic function. Moderately abnormal left ventricular ejection fraction estimated at 30-35%. Normal right ventricular size and function. Catheter/pacemaker wire in the right ventricular cavity. Moderate right atrial dilatation. Moderate left atrial dilatation. Kvje-px-nmcbhecw aortic regurgitation. Lang-me-vgtkobmb tricuspid regurgitation. Right ventricular systolic pressure estimated to be elevated at > 60 mmHg. Assessment/Plan Assessment: Patient is a 76-year-old male with past medical history significant for atrial fibrillation on Eliquis, bradycardia status post AICD, hypertension, polycythemia, thyroid cancer, parathyroid cancer status post multiple surgeries, TIA, with previous echo in January 2017 showing LVEF of 50-55% with mild left ventricular hypertrophy and increased right ventricular systolic pressure of 43 mmHg and a 4.3 cm dilated ascending aorta presenting this admission with progressive dyspnea on exertion and orthopnea. On admission: Afebrile, heart rate: 96, respirations 15, blood pressure initially 176/111 improving to 149/106, initially saturating at 88% on room air improving to 94% on 2 L nasal cannula. Physical examination pertinent for elevated JVD and bibasilar crackles without lower extremity edema. Labs were remarkable for MCV of 101.7, sodium of 149, BUN/creatinine 25 and 1.1, anion gap of 18, calcium of 11, proBNP of 10,700, INR of 2.87. Chest x-ray revealed cardiomegaly with pacemaker lead in right ventricle. 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 Patient in the ED initially received DuoNeb treatment 1, Solu-Medrol 125 mg IV Assessment: Patient is a 76-year-old male with significant cardiac history with findings consistent of new onset heart failure with repeat echo today showing a left ventricular ejection fraction of 30-35% which is significantly reduced from his previous echo in 2017 EF of 50-55%. Echo also shows elevated right ventricular systolic pressure of greater than 60 mmHg and global reduction of LV systolic function. Patient today continues to have dyspnea however this has improved with IV Lasix and supplemental oxygen currently at 3 L saturating at 92-95%. Patient is currently in atrial fibrillation with paced heart rate 60s to 70s. Patient was worked up for possible etiologies of new onset heart failure including ACS, valvular disease, heart disease, thyroid disease. Patient was seen and evaluated by cardiology. Records were requested from patient's outpatient audit clerks supervisor in [place], Dr. Jackson. Etiology of patient's new onset heart failure is still unclear however it may be due to tachycardia-induced cardiomyopathy in the setting of atrial fibrillation. Records also arevealed that patient has obstructive sleep apnea requiring CPAP however patient has been noncompliant with CPAP. 1. New onset heart failure 2. Atrial fibrillation 3. Hypothyroidism, history of thyroid cancer 4. Hypernatremia 5. Hypercalcemia Plan: * Continue to monitor on telemetry * Cardiology on board. Appreciate recommendations * Continue Lasix 20 mg IV twice a day * Continue to monitor ins and outs outs and weights daily * Continue metoprolol and valsartan (not available inpatient, losartan substituted) * Continue Eliquis for anticoagulation * Continue levothyroxine 175 g daily * TR for CPAP evaluation * Continue supplemental oxygen and wean off as tolerated * Continue MiraLAX and senna as needed DVT prophylaxis: On Eliquis Diet: Heart healthy Code: Full code Problem List: 1. CHF exacerbation 2. Atrial fibrillation Pain Ratin Pain Location: n/a Pain Goal: Remain pain free Pain Plan: n/a Tomorrow's Labs & Rationales: bep- on lasix Abran Hagen MD 07/21/17 1712: Attending MD Review Statement Attending Statement Attending MD Statement: examined this patient, discuss w/resident/PA/ANGLE SHEAR SET UP OPERATOR, agreed w/resident/PA/ANGLE SHEAR SET UP OPERATOR, reviewed EMR data (avail), discussed with nursing, discussed with case mgmt, reviewed images, amended to note Attending Assessment/Plan: The patient was seen and discussed with house staff. Appreciate Cardiology consultation. I/O's negative with Lasix. ECHO report suggests significant decrease in LVEF 30-35% (vs prior 02/02 50-55%). No focal WMA to suggest ischemia. Consider possible tachycardia induced cardiomyopathy? Await further Cardiology input. Follow I/O's and daily weights along with BEP with Lasix.
--- NOTE | 2017-07-21 11:51 | Cons- Cardiology ---
General Information and HPI Consulting Request Date of Consult: 07/21/17 Requested By: Abran Hagen MD Reason for Consult: Shortness of breath Source of Information: patient, old records History of Present Illness: This is a pleasant 76-year-old male with a past medical history of atrial fibrillation on Eliquis, permanent pacemaker, aortic aneurysm, hypertension, and thyroid disorder who presents to [facility] with a chief complaint of progressive dyspnea of moderate intensity with no associated chest pain. Also noted some rhinorrhea and cough without subjective fevers. Does note some difficulty laying flat but denies any increasing lower extremity edema. No associated bleeding episodes. Denies any headache, slurring of speech, or syncopal episodes. Sometimes has low-level palpitations which are short in duration. Allergies/Medications Allergies: Coded Allergies: No Known Allergies (07/20/17) Home Med List: Apixaban (Eliquis) 5 MG TABLET 1 TAB PO BID BLOOD THINNER (Reported) Diltiazem HCl (Diltiazem ER) 180 MG CAPSULE.ER 1 CAP PO DAILY HEART (Reported ) Levothyroxine Sodium (Synthroid) 175 MCG TABLET 1 TAB PO DAILY AC THYROID ( Reported) Metoprolol Succinate 100 MG TAB.ER.24H 1 TAB PO DAILY HEART (Reported) [place]-3 Acid Ethyl Esters (Lovaza) 1 GRAM CAPSULE 2 CAP PO BID CHOLESTEROL ( Reported) Valsartan (Diovan) 320 MG TABLET 1 TAB PO DAILY BP (Reported) Current Medications: Current Medications Sig/Janes Start time Last Medication Dose Route Stop Time Status Admin Albuterol Sulfate 3 ML ONCE ONE 07/20 174 DC 07/20 INH 07/20 1746 1749 Apixaban 5 MG BID 07/21 0100 AC 07/21 PO 0906 Furosemide 20 MG 7:30 AM, & 4:30 PM 07/21 0730 AC 07/21 IV 0906 Furosemide 0 .STK-MED ONE 07/20 193 DC IV Furosemide 20 MG ONCE ONE 07/20 1929 DC 07/20 IV 07/20 1930 193 Ipratropium [place] 2.5 ML ONCE ONE 07/20 1745 DC 07/20 INH 07/20 1746 1749 Levothyroxine Sodium 0.175 MG DAILY AC 07/21 0700 AC 07/21 PO 0611 Methylprednisolone 0 .STK-MED ONE 07/20 175 DC .ROUTE Methylprednisolone 125 MG ONCE ONE 07/20 1745 DC 07/20 IV 07/20 1746 1746 Metoprolol Succinate 100 MG DAILY 07/21 1000 AC 07/21 PO 0906 Polyethylene Glycol 17 GM DAILY PRN 07/21 0115 AC PO Senna 187 MG AT BEDTIME PRN 07/21 0115 AC PO Review of Systems Review of Systems: Review of systems as per HPI. The remainder of a 10 point review of systems was reviewed and was otherwise negative. Past History Travel History Traveled to [place] past 21 day No Medical History Blood Transfusion Hx: No Neurological: NONE EENT: thyroid and parathyroid malignancy Cardiovascular: AFIB, hypertension, AICD Respiratory: obstructive sleep apnea Gastrointestinal: NONE Hepatic: NONE Renal: NONE Musculoskeletal: NONE Psychiatric: NONE Endocrine: chronic hypercalcemia Blood Disorders: pv Cancer(s): thyroid [employer] PROGRAM DIRECTOR/Reproductive: NONE Surgical History Surgical History: thyroidectomy Family History Relations & Conditions If Any: MOTHER FH: HTN (hypertension) SISTER FH: HTN (hypertension) SISTER FH: diabetes mellitus BROTHER FH: diabetes mellitus Relation not specified for: FH: heart disease Psychosocial History Where Do You Live? Home Who Do You Live With? self Services at Home: None Primary Language: Khmer Smoking Status: Never Smoked ETOH Use: denies use Illicit Drug Use: denies illicit drug use Living Will? no Exam & Diagnostic Data Vital Signs and I&O Vital Signs Date Time Temp Pulse Resp B/P B/P Pulse O2 O2 Flow FiO2 Mean Ox Delivery Rate 07/21 0906 80 132/80 07/21 0654 98.1 61 18 130/62 95 Nasal Cannula 07/20 2355 94.3 82 16 148/101 92 Nasal 3.0L Cannula 07/20 2254 92 Nasal 3.0L Cannula 07/20 2224 98.4 75 18 124/77 94 Nasal 3.0L Cannula 07/20 1915 152/98 07/20 191 98.1 67 20 149/106 92 Nasal 3.0L Cannula 07/20 1752 90 Nasal 3.0L Cannula 07/20 1737 94 Nasal 2.0L Cannula 07/20 1647 96.6 96 15 176/116 88 Room Air Room Air Intake & Output 07/21 1600 07/21 0800 07/21 0000 07/20 1600 07/20 0800 07/20 0000 Intake Total 100 0 Output Total 250 635 Balance -150 -635 Intake, Oral 100 0 Output, Urine 250 635 Patient 200 lb Weight Weight Reported by Patient Measurement Method Physical Exam: General: no apparent distress. Alert. Eyes: No obvious scleral icterus. HEENT: No jugular venous distention or abnormal jugular venous pulsations. Cardiovascular: Normal intensity S1/S2. Irregular, pacemaker noted Respiratory: Mildly decreased air entry Abdomen: Soft, nontender with no guarding or rebound tenderness. Musculoskeletal: No clubbing or cyanosis noted; trace lower extremity edema Skin: No obvious rashes or ulcerations. Neurologic: No gross focal deficits noted. Lymph: No gross lymphadenopathy. Labs/Brent Results: Laboratory Tests 07/21 07/21 07/21 1000 0642 0030 Chemistry Sodium (137 - 145 mmol/L) Cancelled 145 147 H Potassium (3.5 - 5.1 mmol/L) 3.8 Chloride (98 - 107 mmol/L) 109 H Carbon Dioxide (22 - 30 mmol/L) 23 Anion Gap (5 - 16) 14 BUN (9 - 20 mg/dL) 24 H Creatinine (0.7 - 1.2 mg/dL) 1.0 Estimated GFR (>60 ml/min) > 60 BUN/Creatinine Ratio (7 - 25 %) 24.0 Troponin I (<0.11 ng/ml) 0.01 0.02 Hematology CBC w Diff NO MAN DIFF REQ WBC (4.8 - 10.8 /CUMM) 7.2 RBC (4.70 - 6.10 /CUMM) 4.53 L Hgb (14.0 - 18.0 G/DL) 15.3 Hct (42 - 52 %) 45.7 MCV (80.0 - 94.0 FL) 101.0 H MCH (27.0 - 31.0 PG) 33.7 H MCHC (33.0 - 37.0 G/DL) 33.4 RDW (11.5 - 14.5 %) 15.8 H Plt Count (130 - 400 /CUMM) 217 MPV (7.4 - 10.4 FL) 8.6 Gran % (42.2 - 75.2 %) 92.5 H Lymphocytes % (20.5 - 51.1 %) 7.0 L Monocytes % (1.7 - 9.3 %) 0.5 L Eosinophils % (0 - 5 %) 0 Basophils % (0.0 - 2.0 %) 0 Absolute Granulocytes (1.4 - 6.5 /CUMM) 6.7 H Absolute Lymphocytes (1.2 - 3.4 /CUMM) 0.5 L Absolute Monocytes (0.10 - 0.60 /CUMM) 0 L Absolute Eosinophils (0.0 - 0.7 /CUMM) 0 Absolute Basophils (0.0 - 0.2 /CUMM) 0 / 1730 Chemistry Sodium (137 - 145 mmol/L) 149 H Potassium (3.5 - 5.1 mmol/L) 3.6 Chloride (98 - 107 mmol/L) 107 Carbon Dioxide (22 - 30 mmol/L) 24 Anion Gap (5 - 16) 18 H BUN (9 - 20 mg/dL) 25 H Creatinine (0.7 - 1.2 mg/dL) 1.1 Estimated GFR (>60 ml/min) > 60 BUN/Creatinine Ratio (7 - 25 %) 22.7 Glucose (65 - 99 mg/dL) 113 H Lactic Acid (0.7 - 2.1 mmol/L) 1.8 Calcium (8.4 - 10.2 mg/dL) 11.0 H Total Bilirubin (0.2 - 1.3 mg/dL) 1.0 AST (17 - 59 U/L) 19 ALT (21 - 72 U/L) 25 Alkaline Phosphatase (< 127 U/L) 76 Creatine Kinase (55 - 170 U/L) 46 L Troponin I (<0.11 ng/ml) 0.03 Nct-O-Pkccruljoua Pept (<125 pg/mL) 18396 H Total Protein (6.3 - 8.2 g/dL) 7.4 Albumin (3.5 - 5.0 g/dL) 4.5 Globulin (1.9 - 4.2 gm/dL) 2.9 Albumin/Globulin Ratio (1.1 - 2.2 %) 1.6 Coagulation PT (9.4 - 12.5 SEC) 29.8 H INR (0.90 - 1.17) 2.87 H APTT (25 - 37 SEC) 41 H Hematology CBC w Diff NO MAN DIFF REQ WBC (4.8 - 10.8 /CUMM) 8.0 RBC (4.70 - 6.10 /CUMM) 4.77 Hgb (14.0 - 18.0 G/DL) 16.0 Hct (42 - 52 %) 48.6 MCV (80.0 - 94.0 FL) 101.7 H MCH (27.0 - 31.0 PG) 33.5 H MCHC (33.0 - 37.0 G/DL) 32.9 L RDW (11.5 - 14.5 %) 16.2 H Plt Count (130 - 400 /CUMM) 229 MPV (7.4 - 10.4 FL) 8.3 Gran % (42.2 - 75.2 %) 78.8 H Lymphocytes % (20.5 - 51.1 %) 13.0 L Monocytes % (1.7 - 9.3 %) 6.8 Eosinophils % (0 - 5 %) 1.1 Basophils % (0.0 - 2.0 %) 0.3 Absolute Granulocytes (1.4 - 6.5 /CUMM) 6.3 Absolute Lymphocytes (1.2 - 3.4 /CUMM) 1.0 L Absolute Monocytes (0.10 - 0.60 /CUMM) 0.5 Absolute Eosinophils (0.0 - 0.7 /CUMM) 0.1 Absolute Basophils (0.0 - 0.2 /CUMM) 0 Diagnostic Data EKG Results Tracing was pressing reviewed and shows atrial fibrillation with controlled ventricular response rate CXR Results Cardiomegaly. Pacemaker lead in right ventricle. No acute pulmonary vascular congestion. Other Results Telemetry tracings were personally reviewed and show atrial fibrillation with occasional pacing CT: - No central pulmonary embolism. - Imaging findings suggest mild to moderate interstitial/alveolar pulmonary edema. There is a small right pleural effusion. - Stable appearing nonspecific enlarged mediastinal and bilateral hilar lymph nodes. 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 - Stable cardiomegaly. Assessment/Plan Assessment/Plan 1. Shortness of breath likely due to recent URI along with new onset decompensated congestive heart failure 2. Atrial fibrillation on Eliquis 3. Permanent pacemaker in situ 4. Aortic aneurysm 5. Hypertension 6. Thyroid disorder 7. Hypernatremia The patient's presentation is concerning for new onset congestive heart failure. Echocardiogram is pending. Agree with continuing IV Lasix twice a day. Strict I' s and O's and daily weights should be measured. Recommend resuming his outpatient beta miko and ARB. Recommend obtaining medical records from his outpatient tricot knitter. Continue his Elqiuis. Jonnie Lester MD [facility] Consult Acknowledgment - Thank you for your consult request.
--- NOTE | 2017-07-21 12:15 | ECHOCARDIOGRAM REPORT ---
MARLYS ROWE Age: 76 : 1940 Gender: M Exam Date: 07/21/2017 09:47 Exam Location: 1 [address] Ht (in): 68 Wt (lb): 200 BSA: 2.11 BP: 130 / 62 Ordering Physician: Grady Argueta MD Referring Physician: Grady Argueta MD Technologist: Segundo Terrell [facility] Room Number: 188-1 Indications: HEART FAILURE Rhythm: Technical Quality: FINDINGS Left Ventricle Left ventricular cavity size normal. Left ventricular wall thickness at upper limits of normal. Moderately reduced global left ventricular systolic function. Moderately abnormal left ventricular ejection fraction estimated at 30-35%. Right Ventricle Normal right ventricular size and function. Catheter/pacemaker wire in the right ventricular cavity. Right Atrium Moderate right atrial dilatation. Left Atrium Moderate left atrial dilatation. Mitral Valve Structurally normal mitral valve. Mild mitral regurgitation. Aortic Valve Trileaflet aortic valve. Qpnn-pr-xuiheaqe aortic regurgitation. Tricuspid Valve Structurally normal tricuspid valve. Tejm-ph-qipptkti tricuspid regurgitation. Right ventricular systolic pressure estimated to be elevated at > 60 mmHg. Pulmonic Valve Pulmonic valve not well visualized, grossly normal. Pericardium No pericardial effusion. Great Vessels Mildly dilated proximal ascending aorta (4.2 cm). CONCLUSIONS Left ventricular cavity size normal. Left ventricular wall thickness at upper limits of normal. Moderately reduced global left ventricular systolic function. Moderately abnormal left ventricular ejection fraction estimated at 30-35%. Normal right ventricular size and function. Catheter/pacemaker wire in the right ventricular cavity. Moderate right atrial dilatation. Moderate left atrial dilatation. Dpaz-yg-kkusctye aortic regurgitation. Kmbe-uf-asssvjbs tricuspid regurgitation. Right ventricular systolic pressure estimated to be elevated at > 60 mmHg. Johan Lester M.D. (Electronically Signed) Final Date: 21 July 2017 12:14 MEASUREMENTS (Male / Female) Normal Values 2D ECHO LV Diastolic Diameter PLAX 5.3 cm 4.2 - 5.9 / 3.9 - 5.3 cm LV Systolic Diameter PLAX 4.5 cm 2.1 - 4.0 cm LV Fractional Shortening PLAX 15.1 % 25 - 46 % LV Ejection Fraction 2D Teich 31.7 % IVS Diastolic Thickness 1.2 cm LVPW Diastolic Thickness 1.0 cm LV Relative Wall Thickness 0.4 RV Internal Dim ED PLAX 4.2 cm 1.9 - 3.8 cm LVOT Diameter 2.1 cm Aortic Root Diameter 3.7 cm LA Systolic Diameter LX 4.6 cm 3.0 - 4.0 / 2.7 - 3.8 cm LA Volume 130.0 cm 18 - 58 / 22 - 52 cm Ascending Aorta Diameter 4.2 cm DOPPLER AV Peak Velocity 121.0 cm/s AV Peak Gradient 5.9 mmHg AV Mean Velocity 79.0 cm/s AV Mean Gradient 3.0 mmHg AV Velocity Time Integral 23.5 cm AI Deceleration Tripp 136.0 cm/s AI Peak Velocity 445.0 cm/s AI Pressure Half Time 961.5 ms AI Peak Gradient 79.2 mmHg LVOT Peak Velocity 68.1 cm/s LVOT Peak Gradient 1.9 mmHg LVOT Mean Velocity 46.5 cm/s LVOT Mean Gradient 1.0 mmHg LVOT Velocity Time Integral 14.2 cm LVOT Stroke Volume 49.2 cm AV Area Cont Eq vti 2.1 cm AV Area Cont Eq pk 1.9 cm MV Peak Velocity 94.2 cm/s MV Peak Gradient 3.5 mmHg MV Mean Velocity 53.1 cm/s MV Mean Gradient 1.0 mmHg Mitral E Point Velocity 72.2 cm/s Mitral A Point Velocity 53.5 cm/s Mitral E to A Ratio 1.3 MV PHT Velocity 96.5 cm/s MV Deceleration Tripp 496.0 cm/s MV Pressure Half Time 58.4 ms MV Area PHT 3.8 cm MV Deceleration Time 120.0 ms MR Peak Velocity 529.0 cm/s MR Peak Gradient 111.9 mmHg TR Peak Velocity 376.0 cm/s TR Peak Gradient 56.6 mmHg Right Atrial Pressure 5.0 mmHg Pulmonary Artery Systolic Pressu 61.6 mmHg Right Ventricular Systolic Press 61.6 mmHg PV Peak Velocity 79.3 cm/s PV Peak Gradient 2.5 mmHg PV Mean Velocity 51.8 cm/s PV Mean Gradient 1.0 mmHg PV Velocity Time Integral 13.5 cm
[2017-07-21 15:08] VITALS: BP 132/90
[2017-07-21 22:49] VITALS: BP 120/70
[2017-07-22 07:26] VITALS: BP 122/82
--- NOTE | 2017-07-22 09:30 | PN- Cardiology ---
Subjective Subjective: * Breathing is much improved. Patient can lie flat without shortness of breath. * atrial fibrillation with controlled heart rate * EF is about 35% with moderate bilatrial enlargement and mild to moderate AI and TR * INR is 2.87 Objective Vital Signs and I&Os Vital Signs Date Time Temp Pulse Resp B/P B/P Pulse O2 O2 Flow FiO2 Mean Ox Delivery Rate 07/22 08 Nasal 3.0L Cannula 07/22 0751 78 124/62 07/22 0750 78 124/62 07/22 0726 98.0 81 18 122/82 94 Nasal Cannula 07/22 0000 94 Nasal 3.0L Cannula 07/21 2249 97.7 66 18 120/70 92 07/21 1600 94 Nasal 3.0L Cannula 07/21 1508 98.4 70 20 132/90 94 Nasal 3.0L Cannula 07/21 1438 Nasal 3.0L Cannula Intake & Output 07/22 1600 07/22 0800 07/22 0000 07/21 1600 07/21 0800 07/21 0000 Intake Total 0 520 100 0 Output Total 300 350 550 250 635 Balance -300 170 -550 -150 -635 Intake, IV 0 0 Intake, Oral 0 520 100 0 Number 0 0 Bowel Movements Output, Urine 300 350 550 250 635 Patient 174 lb 200 lb Weight Weight Chair scale Reported by Patient Measurement Method Physical Exam: General: WD/WN male in NAD; alert and oriented x 3 HEENT: NC/AT, PERRL, EOMI Neck: no JVD Heart: irregularly irregular with 2/6 systolic murmur Lungs: clear bilaterally Extremities: 1+ leg edema Assessment/Plan Assessment/Plan * No current decompensated CHF. Change Lasix to 20mg PO daily. If feeling well tomorrow he can be discharged from a cardiac perspective. * Atrial fibrillation with good rate control on Metoprolol. He does not appear to need Cardizem. INR is in the therapeutic range. Continue telemetry? Yes
--- NOTE | 2017-07-22 11:14 | PN- Att Addend ---
Attending Addendum Attending Brief Note Patient seen and examined. Resting comfortably and not in any acute distress. Reports feeling better compared to presentation. Denies shortness of breath at rest. Denies cough chest pain or palpitations. He complains of constipation. On telemetry monitoring he remains in atrial flutter with a 3 beat run of ventricular ectopy overnight. Vital Signs Date Time Temp Pulse Resp B/P B/P Pulse O2 O2 Flow FiO2 Mean Ox Delivery Rate 07/22 0800 Nasal 3.0L Cannula 07/22 0751 78 124/62 07/22 0750 78 124/62 07/22 0726 98.0 81 18 122/82 94 Nasal Cannula 07/22 0000 94 Nasal 3.0L Cannula 07/21 2249 97.7 66 18 120/70 92 07/21 1600 94 Nasal 3.0L Cannula 07/21 1508 98.4 70 20 132/90 94 Nasal 3.0L Cannula 07/21 1438 Nasal 3.0L Cannula General appearance: Not in any acute distress. Heart: S1-S2 irregular Lungs: Good entry bilaterally, clear to auscultation Abdomen: Soft, nontender with normal bowel sounds Extremities: No pedal edema Skin: Intact with no rashes Neurologic: No gross focal deficit. Laboratory Tests 07/22/17 1012: Anion Gap 15, Estimated GFR 59 L, BUN/Creatinine Ratio 28.3 H Problems: 1. Acute systolic heart failure. EF was normal back in January now reduced. 2. Atrial flutter 3. Hypertension; better controlled. 4. Hypokalemia 5. Constipation. Recommendations: -Cardiology follow-up appreciated. Transition patient to Lasix 20 mg orally daily. -Unclear etiology of his reduced EF. Follow-up with the cardiology service regarding need for ischemic workup. other etiology may be tachycardia related cardiomyopathy however has been rate controlled here. -Patient is on metoprolol XL. Please confirm if he is also on Cardizem as this shows up on his medication list but appears he has not used it since January. -Monitor input output and daily weight. Refer patient to the CHF clinic upon discharge. -Supplement potassium orally. -Mobilize patient and wean off oxygen supplementation as tolerated. Anticipate discharge in the next 24-48 hours if he is weaned off oxygen supplementation. -Begin on a bowel regimen for his constipation
[2017-07-22 14:15] VITALS: BP 102/68
[2017-07-22 23:13] VITALS: BP 124/80
[2017-07-23 06:34] VITALS: BP 138/88
--- NOTE | 2017-07-23 08:48 | PN- Housestaff ---
Fabricio WRIGHT,Kathryn 07/23/17 0847: Subjective Follow-up For: New onset HF HTN Hypercalcemia Hypernatremia Subjective: Patient was seen and examined today. Denies any complaints. States his breathing has improved. Denies chest pain, palpitations, fever, chills, abdominal pain, n/ v/c/d. Pt had a run of 4 beats vtach, asymptomatic. Review of Systems Constitutional: Reports: no symptoms. Cardiovascular: Reports: no symptoms. Respiratory: Reports: short of breath. Gastrointestinal: Reports: no symptoms. Musculoskeletal: Reports: no symptoms. Objective Last 24 Hrs of Vital Signs/I&O Vital Signs Date Time Temp Pulse Resp B/P B/P Pulse O2 O2 Flow FiO2 Mean Ox Delivery Rate 07/23 0810 76 138/88 07/23 0809 76 138/88 07/23 0800 Nasal 1.5L Cannula 07/23 0634 97.4 76 18 138/88 93 Nasal 1.5L Cannula 07/23 0000 Nasal 1.5L Cannula 07/22 2313 97.2 78 20 124/80 93 Nasal 1.5L Cannula 07/22 1415 98.2 84 22 102/68 93 Nasal 3.0L Cannula Intake & Output 07/23 1600 07/23 0800 07/23 0000 Intake Total 120 120 Output Total Balance 120 120 Intake, Oral 120 120 Patient 175 lb Weight Weight Chair scale Measurement Method Physical Exam General Appearance: Alert, Oriented X3, Cooperative, No Acute Distress Cardiovascular: Normal S1, Normal S2 Lungs: Clear to Auscultation, Normal Air Movement Extremities: No Clubbing, No Cyanosis, No Edema, Normal Pulses, No Tenderness/ Swelling Vascular: Normal Pulses, Pulses Symmetrical Current Medications: Current Medications Sig/Janes Start time Last Medication Dose Route Stop Time Status Admin Apixaban 5 MG BID 07/21 0100 AC 07/23 PO 0809 Furosemide 20 MG DAILY 07/22 1426 AC 07/23 PO 0809 Furosemide 20 MG 7:30 AM, & 4:30 PM 07/21 0730 DC 07/22 IV 0750 Levothyroxine Sodium 0.175 MG DAILY AC 07/21 0700 AC 07/23 PO 0545 Losartan Potassium 50 MG DAILY 07/22 1000 AC 07/23 PO 0809 Metoprolol Succinate 100 MG DAILY 07/21 1000 AC 07/23 PO 0810 Polyethylene Glycol 17 GM DAILY PRN 07/21 0115 AC 07/22 PO 1239 Potassium Chloride 40 MEQ ONCE ONE 07/22 1445 DC 07/22 PO 07/22 1446 1438 Senna 187 MG AT BEDTIME PRN 07/21 0115 AC 07/22 PO 1239 Senna/Docusate Sodium 1 TAB .STK-MED ONE 07/22 1110 DC PO 07/22 1111 Last 24 Hrs of Lab/Brent Results Last 24 Hrs of Labs/Mics: Laboratory Tests 07/23/17 0635: Anion Gap 11, Estimated GFR > 60, BUN/Creatinine Ratio 30.0 H 07/22/17 1012: Anion Gap 15, Estimated GFR 59 L, BUN/Creatinine Ratio 28.3 H Assessment/Plan Assessment: Patient is a 76-year-old male with past medical history significant for atrial fibrillation on Eliquis, bradycardia status post AICD, hypertension, polycythemia, thyroid cancer, parathyroid cancer status post multiple surgeries, TIA, with previous echo in January 2017 showing LVEF of 50-55% with mild left ventricular hypertrophy and increased right ventricular systolic pressure of 43 mmHg and a 4.3 cm dilated ascending aorta presenting this admission with progressive dyspnea on exertion and orthopnea. On admission: Afebrile, heart rate: 96, respirations 15, blood pressure initially 176/111 improving to 149/106, initially saturating at 88% on room air improving to 94% on 2 L nasal cannula. Physical examination pertinent for elevated JVD and bibasilar crackles without lower extremity edema. Labs were remarkable for MCV of 101.7, sodium of 149, BUN/creatinine 25 and 1.1, anion gap of 18, calcium of 11, proBNP of 10,700, INR of 2.87. Chest x-ray revealed cardiomegaly with pacemaker lead in right ventricle. 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 Patient in the ED initially received DuoNeb treatment 1, Solu-Medrol 125 mg IV Assessment: Patient is a 76-year-old male with significant cardiac history with findings consistent of new onset heart failure with repeat echo today showing a left ventricular ejection fraction of 30-35% which is significantly reduced from his previous echo in 2017 EF of 50-55%. Echo also shows elevated right ventricular systolic pressure of greater than 60 mmHg and global reduction of LV systolic function. Patient today has markedly improved with no dyspnea on lasix and oxygen 1.5L down from 3L, saturating in the mid 90s. Patient is currently in atrial fibrillation with paced heart rate 60s to 70s. Patient was worked up for possible etiologies of new onset heart failure including ACS, valvular disease, heart disease, thyroid disease. Patient was seen and evaluated by cardiology. Records were requested from patient's outpatient certified technician specialist in [place], Dr. Jackson. Etiology of patient's new onset heart failure is still unclear however it may be due to tachycardia-induced cardiomyopathy in the setting of atrial fibrillation. Records also arevealed that patient has obstructive sleep apnea requiring CPAP however patient has been noncompliant with CPAP. Patient continues to refuse CPAP evaluation here. 1. New onset heart failure 2. Atrial fibrillation 3. Hypothyroidism, history of thyroid cancer 4. Hypernatremia - resolved 5. Hypercalcemia Plan: * Continue to monitor on telemetry * Cardiology on board. Appreciate recommendations * Continue Lasix 20 mg PO daily * Continue to monitor ins and outs outs and weights daily * Continue metoprolol and valsartan (not available inpatient, losartan substituted) * Continue Eliquis for anticoagulation * Continue levothyroxine 175 g daily * Continue supplemental oxygen and wean off as tolerated * Continue MiraLAX and senna as needed DVT prophylaxis: On Eliquis Diet: Heart healthy Code: Full code Dispo: possible discharge tomorrow, further workup outpatient with cardiology, referal for pulmonology for MODESTA and sleep study for CPAP re-evaluation Problem List: 1. CHF exacerbation Pain Ratin Pain Location: n/a Pain Goal: Remain pain free Pain Plan: tylenol PRN Tomorrow's Labs & Rationales: bep - salas Liu MD,Lowugbengvan 07/23/17 1520: Attending MD Review Statement Attending Statement Attending MD Statement: examined this patient, discuss w/resident/PA/FELTING MACHINE OPERATOR HELPER, agreed w/resident/PA/FELTING MACHINE OPERATOR HELPER, reviewed EMR data (avail), discussed with nursing, discussed with case mgmt, amended to note Attending Assessment/Plan: Patient seen and examined. No issues overnight. No events on patient monitor. No new complaints this morning. He reports any better. On auscultation he has good entry bilaterally with no added sounds. He has no peripheral edema. Recommendations: -Continue oral Lasix. -Continue rate control with metoprolol only. No need for Cardizem per the cardiology service. -Keep off oxygen supplementation as tolerated. -Anticipate discharge tomorrow if he is able to be weaned off oxygen. Patient to be followed by the cardiology service to determine need for further ischemic workup.
--- NOTE | 2017-07-23 10:17 | PN- Cardiology ---
Subjective Subjective: * Breathing is much improved and he can lie flat without shortness of breath. He does not feel that he is completely back to baseline yet. * atrial fibrillation with controlled heart rate * EF is about 35% with moderate bilatrial enlargement and mild to moderate AI and TR * INR is 2.87 Objective Vital Signs and I&Os Vital Signs Date Time Temp Pulse Resp B/P B/P Pulse O2 O2 Flow FiO2 Mean Ox Delivery Rate 07/23 0810 76 138/88 07/23 0809 76 138/88 07/23 0800 Nasal 1.5L Cannula 07/23 0634 97.4 76 18 138/88 93 Nasal 1.5L Cannula 07/23 0000 Nasal 1.5L Cannula 07/22 2313 97.2 78 20 124/80 93 Nasal 1.5L Cannula 07/22 1415 98.2 84 22 102/68 93 Nasal 3.0L Cannula Intake & Output 07/23 1600 07/23 0800 07/23 0000 07/22 1600 07/22 0800 07/22 0000 Intake Total 120 120 360 0 520 Output Total 400 300 350 Balance 120 120 -40 -300 170 Intake, IV 0 0 Intake, Oral 120 120 360 0 520 Number 1 0 0 Bowel Movements Output, Urine 400 300 350 Patient 175 lb 174 lb Weight Weight Chair scale Chair scale Measurement Method Physical Exam: General: WD/WN male in NAD; alert and oriented x 3 HEENT: NC/AT, PERRL, EOMI Neck: no JVD Heart: irregularly irregular with 2/6 systolic murmur Lungs: clear bilaterally Extremities: 1+ leg edema Assessment/Plan Assessment/Plan * No current decompensated CHF. Continue Lasix at 20mg PO daily. If feeling well tomorrow he can be discharged from a cardiac perspective. * Atrial fibrillation with good rate control on Metoprolol. He does not appear to need Cardizem. INR is in the therapeutic range. Continue telemetry? Yes
[2017-07-23 14:50] VITALS: BP 122/78
[2017-07-23 22:06] VITALS: BP 112/76
[2017-07-24 06:29] VITALS: BP 112/78
--- NOTE | 2017-07-24 07:36 | PN- Housestaff ---
Fabricio WRIGHT,Kathryn 07/24/17 0736: Subjective Follow-up For: New onset HF HTN Hypercalcemia Hypernatremia Tele-Events Since Last Visit: Dario/Marcelloflutter pacin-95 Subjective: Patient was seen and examined today. Denies any complaints. States his breathing has improved. Patient removed his nasal cannula today. Patient states he felt well walking to and from the bathroom. Denies chest pain, palpitations, fever, chills, abdominal pain, n/v/c/d. Review of Systems Constitutional: Reports: no symptoms. Cardiovascular: Reports: no symptoms. Respiratory: Reports: no symptoms. Gastrointestinal: Reports: no symptoms. Genitourinary: Reports: no symptoms. Musculoskeletal: Reports: no symptoms. Neurological/Psychological: Reports: no symptoms. Objective Last 24 Hrs of Vital Signs/I&O Vital Signs Date Time Temp Pulse Resp B/P B/P Pulse O2 O2 Flow FiO2 Mean Ox Delivery Rate 07/24 1359 97.7 58 18 150/90 91 Nasal 1.5L Cannula 07/24 1100 22 85 Room Air 07/24 1030 18 93 Room Air 07/24 0801 82 112/78 07/24 0801 82 112/78 07/24 0629 97.3 82 16 112/78 94 Nasal 2.0L Cannula 07/24 0000 Nasal 1.5L Cannula 07/23 2206 97.7 80 20 112/76 94 Intake & Output 07/24 1600 07/24 0800 07/24 0000 Intake Total 500 200 720 Output Total 650 350 Balance -150 200 370 Intake, IV 0 Intake, Oral 500 200 720 Number 0 Bowel Movements Output, Urine 650 350 Patient 175 lb Weight Weight Chair scale Measurement Method Physical Exam General Appearance: Alert, Oriented X3, Cooperative, No Acute Distress HEENT: Atraumatic, PERRLA, EOMI, Mucous Membr. moist/pink Cardiovascular: Normal S1, Normal S2, No Murmurs, irregular rate Lungs: Clear to Auscultation, Normal Air Movement Abdomen: Normal Bowel Sounds, Soft, No Tenderness Extremities: No Clubbing, No Cyanosis, No Edema, Normal Pulses, No Tenderness/ Swelling Current Medications: Current Medications Sig/Janes Start time Last Medication Dose Route Stop Time Status Admin Apixaban 5 MG BID 07/21 0100 DCD 07/24 PO 0800 Furosemide 20 MG DAILY 07/22 1426 DCD 07/24 PO 0801 Levothyroxine Sodium 0.175 MG DAILY AC 07/21 0700 DCD 07/24 PO 0601 Losartan Potassium 50 MG DAILY 07/22 1000 DCD 07/24 PO 0801 Metoprolol Succinate 100 MG DAILY 07/21 1000 DCD 07/24 PO 0801 Polyethylene Glycol 17 GM DAILY PRN 07/21 0115 DCD 07/22 PO 1239 Senna 187 MG AT BEDTIME PRN 07/21 0115 DCD 07/22 PO 1239 Last 24 Hrs of Lab/Brent Results Last 24 Hrs of Labs/Mics: Laboratory Tests 07/24/17 0708: Anion Gap 11, Estimated GFR > 60, BUN/Creatinine Ratio 25.5 H Assessment/Plan Assessment: Patient is a 76-year-old male with past medical history significant for atrial fibrillation on Eliquis, bradycardia status post AICD, hypertension, polycythemia, thyroid cancer, parathyroid cancer status post multiple surgeries, TIA, with previous echo in January 2017 showing LVEF of 50-55% with mild left ventricular hypertrophy and increased right ventricular systolic pressure of 43 mmHg and a 4.3 cm dilated ascending aorta presenting this admission with progressive dyspnea on exertion and orthopnea. On admission: Afebrile, heart rate: 96, respirations 15, blood pressure initially 176/111 improving to 149/106, initially saturating at 88% on room air improving to 94% on 2 L nasal cannula. Physical examination pertinent for elevated JVD and bibasilar crackles without lower extremity edema. Labs were remarkable for MCV of 101.7, sodium of 149, BUN/creatinine 25 and 1.1, anion gap of 18, calcium of 11, proBNP of 10,700, INR of 2.87. Chest x-ray revealed cardiomegaly with pacemaker lead in right ventricle. 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 Patient in the ED initially received DuoNeb treatment 1, Solu-Medrol 125 mg IV Assessment: Patient is a 76-year-old male with significant cardiac history with findings consistent of new onset heart failure with repeat echo today showing a left ventricular ejection fraction of 30-35% which is significantly reduced from his previous echo in 2017 EF of 50-55%. Echo also shows elevated right ventricular systolic pressure of greater than 60 mmHg and global reduction of LV systolic function. Patient today was trialed off oxygen however desatted into the mid80s upon walking around the telemetry unit. Patient otherwise has no complaints. He has been evaluated by cardiology. Will send home with oxygen and lasix with 20mg every other day alternating with 40mg every other day. Patient should follow up with cardiology and pcp and have repeat BEP on 07/28. Patient is currently in atrial fibrillation with paced heart rate 60s to 90s. Patient was worked up for possible etiologies of new onset heart failure including ACS, valvular disease, heart disease, thyroid disease. Patient was seen and evaluated by cardiology. Records were requested from patient's outpatient information security risk analyst in [place], Dr. Jackson. Etiology of patient's new onset heart failure is still unclear however it may be due to tachycardia-induced cardiomyopathy in the setting of atrial fibrillation. Records also arevealed that patient has obstructive sleep apnea requiring CPAP however patient has been noncompliant with CPAP. Patient continues to refuse CPAP evaluation here. 1. New onset heart failure 2. Atrial fibrillation 3. Hypothyroidism, history of thyroid cancer 4. Hypernatremia - resolved 5. Hypercalcemia Plan: * Continue to monitor on telemetry * Cardiology on board. Appreciate recommendations * Continue Lasix 20 mg PO daily alternating with 40mg daily * Continue to monitor ins and outs outs and weights daily * Continue metoprolol and valsartan (not available inpatient, losartan substituted) * Continue Eliquis for anticoagulation * Continue levothyroxine 175 g daily * Continue supplemental oxygen and wean off as tolerated * Continue MiraLAX and senna as needed DVT prophylaxis: On Eliquis Diet: Heart healthy Code: Full code Dispo: Further workup outpatient with cardiology, referal for pulmonology for MODESTA and sleep study for CPAP re-evaluation Discharge home today with close follow up with pcp and cardiology. Problem List: 1. CHF exacerbation Pain Ratin Pain Location: n/a Pain Goal: Remain pain free Pain Plan: tylenol PRN Tomorrow's Labs & Rationales: none- discharge today Abran Hagen MD 07/24/17 0615: Attending Review Statement Attending Statement Attending Statement: examined this patient, discuss w/resident/PA/GAS MAIN AND LINE FITTER, agreed w/resident/PA/GAS MAIN AND LINE FITTER, discussed with family, reviewed EMR data (avail), discussed with nursing, discussed with case mgmt, amended to note Attending Assessment/Plan: The patient was seen and discussed with house staff. Still requiring oxygen ( patient has had home oxygen previously) as desaturates to 80% with ambulation. OK to discharge to home today per Cardiology and will have OP cardiology and pulmonary follow-up (was on CPAP in past). Home oxygen ordered.
--- NOTE | 2017-07-24 12:47 | PN- Cardiology ---
Subjective Subjective: Patient remains on nasal cannula oxygen with no residual edema. He feels his breathing is close to baseline (which he admits is not actually normal). Objective Vital Signs and I&Os Vital Signs Date Time Temp Pulse Resp B/P B/P Pulse O2 O2 Flow FiO2 Mean Ox Delivery Rate 07/24 1100 22 85 Room Air 07/24 1030 18 93 Room Air 07/24 0801 82 112/78 07/24 0801 82 112/78 07/24 0629 97.3 82 16 112/78 94 Nasal 2.0L Cannula 07/24 0000 Nasal 1.5L Cannula 07/23 2206 97.7 80 20 112/76 94 07/23 1600 Nasal 1.5L Cannula 07/23 1450 97.8 82 28 122/78 94 Nasal 1.5L Cannula Intake & Output 07/24 1600 07/24 0800 07/24 0000 07/23 1600 07/23 0800 07/23 0000 Intake Total 200 720 450 120 120 Output Total 350 500 Balance 200 370 -50 120 120 Intake, IV 0 Intake, Oral 200 720 450 120 120 Number 0 Bowel Movements Output, Urine 350 500 Patient 175 lb 175 lb Weight Weight Chair scale Chair scale Measurement Method Physical Exam: General: no apparent distress. Alert. Eyes: No obvious scleral icterus. HEENT: No jugular venous distention or abnormal jugular venous pulsations. Cardiovascular: Normal intensity S1/S2. Irregular, pacemaker noted Respiratory: no rales or ronchi Abdomen: Soft, nontender with no guarding or rebound tenderness. Musculoskeletal: No clubbing or cyanosis noted; No lower extremity edema Skin: No obvious rashes or ulcerations. Neurologic: No gross focal deficits noted. Lymph: No gross lymphadenopathy. Current Medications: Current Medications Sig/Janes Start time Last Medication Dose Route Stop Time Status Admin Apixaban 5 MG BID 07/21 0100 AC 07/24 PO 0800 Furosemide 20 MG DAILY 07/22 1426 AC 07/24 PO 0801 Levothyroxine Sodium 0.175 MG DAILY AC 07/21 0700 AC 07/24 PO 0601 Losartan Potassium 50 MG DAILY 07/22 1000 AC 07/24 PO 0801 Metoprolol Succinate 100 MG DAILY 07/21 1000 AC 07/24 PO 0801 Polyethylene Glycol 17 GM DAILY PRN 07/21 0115 AC 07/22 PO 1239 Senna 187 MG AT BEDTIME PRN 07/21 011 AC 07/22 PO 1239 Results Last 48 Hrs of Labs/Mics: Laboratory Tests 07/24/17 0708: Anion Gap 11, Estimated GFR > 60, BUN/Creatinine Ratio 25.5 H 07/23/17 0635: Anion Gap 11, Estimated GFR > 60, BUN/Creatinine Ratio 30.0 H Recent Imaging Studies: Telemetry tracings were personally reviewed and show atrial fibrillation with controlled ventricular response rate Echo: Left ventricular cavity size normal. Left ventricular wall thickness at upper limits of normal. Moderately reduced global left ventricular systolic function. Moderately abnormal left ventricular ejection fraction estimated at 30-35%. Normal right ventricular size and function. Catheter/pacemaker wire in the right ventricular cavity. Moderate right atrial dilatation. Moderate left atrial dilatation. [id number] aortic regurgitation. [id number] tricuspid regurgitation. Right ventricular systolic pressure estimated to be elevated at > 60 mmHg. Johan Lester M.D. (Electronically Signed) Final Date: 21 July 2017 12:14 Assessment/Plan Assessment/Plan 1. Shortness of breath likely due to recent URI along with new onset decompensated congestive heart failure; now with new moderate LV dysfunction by Echo 2. Atrial fibrillation on Eliquis 3. Permanent pacemaker in situ 4. Aortic aneurysm 5. Hypertension 6. Thyroid disorder 7. Pulmonary Hypertension by echo with no evidence of pulmonary embolism The patient remains on nasal cannula oxygen but reports his breathing is at baseline. If unable to wean off the nasal cannula oxygen can consider increasing the Lasix to 20 mg daily alternating with 40 mg daily. I did have an extensive discussion with him about the potential need for additional ischemic workup given the decrease in ejection fraction; he is willing to consider this but prefers medical therapy for now and he will discuss the possibility of elective right and left heart cath with his outpatient freight engineer. Continue his current anti-myopathic regimen along with his oral anticoagulation; his heart rate remains well-controlled. Jonnie Lester MD [facility] Continue telemetry? No
[2017-07-24 13:59] VITALS: BP 150/90
[2017-07-24] MEDS ORDERED: FUROSEMIDE20 M1 PO ×2 (15:00→16:42)
--- NOTE | 2017-07-24 15:03 | Patient Discharge Instructions ---
Discharge Instructions General Discharge Information You were seen/treated for: Congestive heart failure Special Instructions: 1. Please follow up with your physiotherapy practice manager within 1 week of discharge. Your diltiazem has been stopped due to low blood pressure. Please address restarting your diltiazem with your physiotherapy practice manager. 2. Please follow up with your pcp within 1 week of discharge. 3. Please take the medications as prescribed. 4. Please see your pcp for sleep study referal and CPAP evaluation 5. Please see your pcp and have bloodwork (CMP) done on Monday07/27/16. Activity Full Activity/No Limits: No Activity Self Limited: Yes Acute Coronary Syndrome Inclusion Criteria At DC or during hospital stay patient has or had the following: ACS DIAGNOSIS No Discharge Core Measures Meds if any: Prescribed or Continued at Discharge Meds if any: NOT Prescribed or Continued at Discharge Congestive Heart Failure Inclusion Criteria At DC or during hospital stay patient has or had the following: CHF DIAGNOSIS No Discharge Core Measures Meds if any: Prescribed or Continued at Discharge Meds if any: NOT Prescribed or Continued at Discharge Cerebrovascular accident Inclusion Criteria At DC or during hospital stay patient has or had the following: CVA/TIA Diagnosis No Discharge Core Measures Meds if any: Prescribed or Continued at Discharge Meds if any: NOT Prescribed or Continued at Discharge Venous thromboembolism Inclusion Criteria VTE Diagnosis No VTE Type NONE VTE Confirmed by (Test) NONE Discharge Core Measures - Per Current guidelines, there needs to be overlap - treatment for the first 5 days of Warfarin therapy. - If discharged on Warfarin prior to 5 days of - overlap therapy, the patient will need to be - assessed for post discharge needs including - *Post discharge parental anticoagulation - *Warfarin and/or parental anticoagulation education - *Follow up date to check INR post discharge At least 5 days overlap therapy as Inpatient No Meds if any: Prescribed or Continued at Discharge Note: Overlap Therapy is Warfarin and Anticoagulant Meds if any: NOT Prescribed or Continued at Discharge
--- NOTE | 2017-07-24 16:23 | Discharge Summary ---
Visit Information Visit Dates Admission Date: 07/20/17 Discharge Date: 07/24/17 Hospital Course Course Attending Physician: Abran Hagen MD Primary Care Physician: Alex Self MD Hospital Course: Patient is a 76-year-old male with past medical history significant for atrial fibrillation on Eliquis, bradycardia status post AICD, hypertension, polycythemia, thyroid cancer, parathyroid cancer status post multiple surgeries, TIA, with previous echo in January 2017 showing LVEF of 50-55% with mild left ventricular hypertrophy and increased right ventricular systolic pressure of 43 mmHg and a 4.3 cm dilated ascending aorta presenting this admission with progressive dyspnea on exertion and orthopnea. On admission: Vitals: Afebrile, heart rate: 96, respirations 15, blood pressure initially 176/ 111 improving to 149/106, initially saturating at 88% on room air improving to 94% on 2 L nasal cannula. Physical examination pertinent for elevated JVD and bibasilar crackles without lower extremity edema. Labs: were remarkable for MCV of 101.7, sodium of 149, BUN/creatinine 25 and 1.1 , anion gap of 18, calcium of 11, proBNP of 10,700, INR of 2.87. Imaging:Chest x-ray revealed cardiomegaly with pacemaker lead in right ventricle. 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 Patient in the ED initially received DuoNeb treatment 1, Solu-Medrol 125 mg IV Patient was admitted to telemetry for management of the followin. New onset heart failure: Patient was admitted with signs of new onset congestive heart failure with elevated proBNP and oxygen desaturation requiring oxygen supplementation. Cardiomegaly seen on chest xray with echocardiogram this admission showing LVEF of 30-35% and new moderate left ventricular dysfunction. Patient was diuresed with IV lasix and switched to PO lasix. Patient's oxygen requirement decreased prior to discharge however desatted to the 80s without oxygen with ambulation. * Continue 1L oxygen supplement and wean off as tolerated * Continue new dose of lasix: alternating between 20mg and 40mg daily * Evaluation with Dr. Jackson for possible elective right and left heart catheterization (patient would like to discuss further with Dr. Jackson) for additional ischemic workup as his EF has decreased from 50 to 55% in January 2017. 2. Obstructive sleep apnea- H/O of noncompliance with CPAP Patient's ECHO showed pulmonary hypertension and increased right ventricular systolic pressure >60%. Per patient's outpatient notes he has been non-compliant with CPAP. Patient reportedly discarded his previous CPAP machine. Patient counseled on importance of using CPAP however continued to refuse while in the hospital stating he would prefer to be re-evaluated upon discharge. * Readdress CPAP use with patient 3. H/O Atrial fibrillation and HTN * Continue metoprolol and valsartan * Continue eliquis 4. H/O Hypothyroidism * Continue levothyroxine 175 g daily DVT PPx: on eliquis Diet: heart healthy Code: full code Dispo: Patient stable for discharge home with home oxygen and for further workup per cardiology and pcp with recommendations for referal to pulmonology and polysomnography Allergies: Coded Allergies: No Known Allergies (07/20/17) Pertinent Lab Results: SERVICE DATE: 07/20/17 EXAM TYPE: CAT - CTA CHEST-PULMONARY EMBOLISM EXAMINATION: CT ANGIOGRAM OF THE CHEST WITH AND WITHOUT CONTRAST (CT PULMONARY ANGIOGRAM FOR PE) CLINICAL INFORMATION: Hypoxia and shortness of breath. COMPARISON: CTA chest 01/21/2017. Chest x-ray performed the same day. TECHNIQUE: Prior to contrast administration, noncontrast localization images were obtained. Subsequently, multidetector volumetric imaging was performed from the thoracic inlet to below the diaphragms following the administration of 95 mL Optiray 320 intravenous contrast. No contrast reaction reported. Sagittal, coronal, and MIP oblique sagittal reformatted images were obtained on the CT workstation, uploaded to PACS, and reviewed. FINDINGS: No filling defects within the central, lobar, or segmental pulmonary arteries to suggest underlying pulmonary embolism. There is interlobular septal thickening and patchy groundglass opacities suggesting interstitial/alveolar pulmonary edema. There is a small right pleural effusion. There is no pneumothorax. 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 Stable cardiomegaly. Stable appearing nonspecific enlarged mediastinal and bilateral hilar lymph nodes. Duodenal periampullary diverticulum. No acute osseous abnormalities. Thoracic spondylosis. Left pectoral pacemaker in place. IMPRESSION: - No central pulmonary embolism. - Imaging findings suggest mild to moderate interstitial/alveolar pulmonary edema. There is a small right pleural effusion. - Stable appearing nonspecific enlarged mediastinal and bilateral hilar lymph nodes. 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 - Stable cardiomegaly. SERVICE DATE: 07/20/17-1735 EXAM TYPE: RAD - XRY-PORTABLE CHEST XRAY EXAMINATION: XR PORTABLE CHEST CLINICAL INFORMATION: Shortness of breath. Hypoxia. COMPARISON: Chest x-ray 01/21/2017 TECHNIQUE: Portable frontal view of the chest was obtained. 5:53 PM FINDINGS: Heart size is enlarged. There is a single lead pacemaker in the right ventricle. No acute change of the vascularity. The central hilar vessels are slightly prominent but this is stable since exam of 01/21/2017. No interstitial edema. No large pleural effusion. No dense consolidation. IMPRESSION: Cardiomegaly. Pacemaker lead in right ventricle. No acute pulmonary vascular congestion. SERVICE DATE: 07/21/17- EXAM TYPE: CARD - ECHOCARDIOGRAM MARLYS ROWE Age: 76 : 1940 Gender: M Exam Date: 07/21/2017 09:47 Exam Location: [address] Ht (in): 68 Wt (lb): 200 BSA: 2.11 BP: 130 / 62 Ordering Physician: Grady Argueta MD Referring Physician: Grady Argueta MD Technologist: Segundo Terrell [facility] Room Number: 188-1 Indications: HEART FAILURE Rhythm: Technical Quality: FINDINGS Left Ventricle Left ventricular cavity size normal. Left ventricular wall thickness at upper limits of normal. Moderately reduced global left ventricular systolic function. Moderately abnormal left ventricular ejection fraction estimated at 30-35%. Right Ventricle Normal right ventricular size and function. Catheter/pacemaker wire in the right ventricular cavity. Right Atrium Moderate right atrial dilatation. Left Atrium Moderate left atrial dilatation. Mitral Valve Structurally normal mitral valve. Mild mitral regurgitation. Aortic Valve Trileaflet aortic valve. Msph-vn-xxsuftbt aortic regurgitation. Tricuspid Valve Structurally normal tricuspid valve. Qjzf-sp-hshaqrjv tricuspid regurgitation. Right ventricular systolic pressure estimated to be elevated at > 60 mmHg. Pulmonic Valve Pulmonic valve not well visualized, grossly normal. Pericardium No pericardial effusion. Great Vessels Mildly dilated proximal ascending aorta (4.2 cm). CONCLUSIONS Left ventricular cavity size normal. Left ventricular wall thickness at upper limits of normal. Moderately reduced global left ventricular systolic function. Moderately abnormal left ventricular ejection fraction estimated at 30-35%. Normal right ventricular size and function. Catheter/pacemaker wire in the right ventricular cavity. Moderate right atrial dilatation. Moderate left atrial dilatation. Ketw-bj-mspuakrv aortic regurgitation. Flin-ry-vcfvsdiv tricuspid regurgitation. Right ventricular systolic pressure estimated to be elevated at > 60 mmHg. Johan Lester M.D. (Electronically Signed) Final Date: 21 July 2017 12:14 MEASUREMENTS (Male / Female) Normal Values 2D ECHO LV Diastolic Diameter PLAX 5.3 cm 4.2 - 5.9 / 3.9 - 5.3 cm LV Systolic Diameter PLAX 4.5 cm 2.1 - 4.0 cm LV Fractional Shortening PLAX 15.1 % 25 - 46 % LV Ejection Fraction 2D Teich 31.7 % IVS Diastolic Thickness 1.2 cm LVPW Diastolic Thickness 1.0 cm LV Relative Wall Thickness 0.4 RV Internal Dim ED PLAX 4.2 cm 1.9 - 3.8 cm LVOT Diameter 2.1 cm Aortic Root Diameter 3.7 cm LA Systolic Diameter LX 4.6 cm 3.0 - 4.0 / 2.7 - 3.8 cm LA Volume 130.0 cm 18 - 58 / 22 - 52 cm Ascending Aorta Diameter 4.2 cm DOPPLER AV Peak Velocity 121.0 cm/s AV Peak Gradient 5.9 mmHg AV Mean Velocity 79.0 cm/s AV Mean Gradient 3.0 mmHg AV Velocity Time Integral 23.5 cm AI Deceleration [place]ilton 136.0 cm/s AI Peak Velocity 445.0 cm/s AI Pressure Half Time 961.5 ms AI Peak Gradient 79.2 mmHg LVOT Peak Velocity 68.1 cm/s LVOT Peak Gradient 1.9 mmHg LVOT Mean Velocity 46.5 cm/s LVOT Mean Gradient 1.0 mmHg LVOT Velocity Time Integral 14.2 cm LVOT Stroke Volume 49.2 cm AV Area Cont Eq vti 2.1 cm AV Area Cont Eq pk 1.9 cm MV Peak Velocity 94.2 cm/s MV Peak Gradient 3.5 mmHg MV Mean Velocity 53.1 cm/s MV Mean Gradient 1.0 mmHg Mitral E Point Velocity 72.2 cm/s Mitral A Point Velocity 53.5 cm/s Mitral E to A Ratio 1.3 MV PHT Velocity 96.5 cm/s MV Deceleration [place] 496.0 cm/s MV Pressure Half Time 58.4 ms MV Area PHT 3.8 cm MV Deceleration Time 120.0 ms MR Peak Velocity 529.0 cm/s MR Peak Gradient 111.9 mmHg TR Peak Velocity 376.0 cm/s TR Peak Gradient 56.6 mmHg Right Atrial Pressure 5.0 mmHg Pulmonary Artery Systolic Pressu 61.6 mmHg Right Ventricular Systolic Press 61.6 mmHg PV Peak Velocity 79.3 cm/s PV Peak Gradient 2.5 mmHg PV Mean Velocity 51.8 cm/s PV Mean Gradient 1.0 mmHg PV Velocity Time Integral 13.5 cm Disposition Summary Disposition Principal Diagnosis: New onset congestive heart failure Additional Diagnosis: History of Atrial fibrillation, History of Obstructive Sleep Apnea, History of Hypothyroidism Discharge Disposition: home health services Discharge Instructions General Discharge Information Code Status: Full Code Patient's Diet: Heart Healthy Patient's Activity: Self Limited Follow-Up Instructions/Appts: 1. Please follow up with your still runner within 1 week of discharge. Your diltiazem has been stopped due to low blood pressure. Please address restarting your diltiazem with your still runner. 2. Please follow up with your pcp within 1 week of discharge. 3. Please take the medications as prescribed. 4. Please see your pcp for sleep study referal and CPAP evaluation 5. Please see your pcp and have bloodwork (CMP) done on Monday07/27/16. Medications at Discharge Discharge Medications: Stop taking the following medications: Diltiazem HCl (Diltiazem ER) 180 MG CAPSULE.ER ORAL DAILY Qty = 30 Continue taking these medications: Levothyroxine Sodium (Synthroid) 175 MCG TABLET 1 Tablet ORAL DAILY BEFORE BREAKFAST Comments: Last Taken: 07/24/17 Time: 06:01 Many-3 Acid Ethyl Esters (Lovaza) 1 GRAM CAPSULE 2 Capsule ORAL TWICE DAILY Comments: NOT GIVEN IN THE HOSPITAL Apixaban (Eliquis) 5 MG TABLET 1 Tablet ORAL TWICE DAILY Comments: Last Taken: 07/24/17 Time: 08:00 Valsartan (Diovan) 320 MG TABLET 1 Tablet ORAL DAILY Comments: NOT GIVEN IN THE HOSPITAL Metoprolol Succinate (Metoprolol Succinate) 100 MG TAB.ER.24H 1 Tablet ORAL DAILY Qty = 90 Comments: Last Taken: 07/24/17 Time: 08:01 Start taking the following new medications: Furosemide (Furosemide) 20 MG TABLET 0 ORAL SEE INSTRUCTIONS Qty = 60 No Refills Instructions: Take 2 tabs (40mg) on Monday, and Monday Take 1 tab (40mg) on Monday, Monday, Monday and Monday Comments: Last Taken: 07/24/17 Time: 08:01 Copies To: Manuel WRIGHT,Dom Self MD,Alex Reich
== END 2017-07-24 16:10 | disposition home health service (06) | DRG 291 ==
LOC: ERH 16:43 → ERHI 20:04 → 1NO 20:04 → ENRESERV 22:25 → 1NO 23:31 → ENTRNSPT 07-24 16:09 → 1NO 07-24 16:10 → CMPTRNSPT 07-24 16:21
PROVIDERS: Emergency Medicine; Student in an Organized Health Care Education/Training Program
DX: I11.0 Hypertensive heart disease with heart failure (principal); J96.01 Acute respiratory failure with hypoxia; E87.0 Hyperosmolality and hypernatremia; I27.20 Pulmonary hypertension, unspecified; E86.0 Dehydration; E83.52 Hypercalcemia; I48.91 Unspecified atrial fibrillation; D45 Polycythemia vera; E11.9 Type 2 diabetes mellitus without complications; I48.92 Unspecified atrial flutter; Z79.01 Long term (current) use of anticoagulants; E89.0 Postprocedural hypothyroidism; Z95.810 Presence of automatic (implantable) cardiac defibrillator; Z85.850 Personal history of malignant neoplasm of thyroid; I71.4 Abdominal aortic aneurysm, without rupture; Z86.73 Personal history of transient ischemic attack (TIA), and cerebral infarction without residual deficits; K59.00 Constipation, unspecified; I50.23 Acute on chronic systolic (congestive) heart failure; E87.6 Hypokalemia
CPT/HCPCS: 1NP; 36415; 71045; 82436; 87040; 87804; 87804-59; 93005; 93010; 93306; 96374; 96375; 99291; J1940; J2930; J7508